=== PATIENT | female | born 1965 | race Caucasian/White ===

== ENCOUNTER 2016-11-19 11:12 | Emergency (ER) | payer OTHER ==
[~2016-11-19] VITALS: Ht 160 cm; Wt 98.0 kg
[~2016-11-19 11:12] MED LIST: ALPR0.5T PO; ATOR10TA PO; BUPR150T15 PO; CHOL100013 PO; CLIN-44 PO; CYAN25008 PO; FAMO40TA4 PO; FISH1CAP PO; GEMF600T3 PO; GUAI100L12 PO; HYDR12.53 PO; LEVO500T38 PO; LORA10CA PO; LOSA1TAB16 PO; LOSA50TA6 PO; METF10002 PO; METF500T PO; METF500T4 PO; METO25TA2 PO; PANT40TA3 PO; PRED20TA PO; PROAIR HFA8.5 GM IH; TRAZ100T12 PO; VENL100T PO; VENL75CA PO; VERA240C2 PO
[2016-11-19] MEDS ORDERED: IOHEXOL 300 MG/ML 100ML VIAL. IV ONE (11:45)
[2016-11-19] MEDS ORDERED: CONTRAST GIVEN MC PRN (12:00)
[2016-11-19] MEDS ORDERED: IPRATRPIUM/ALBUTEROL 0.5/2.5MG 3 ML NEBU. NEB ONE (12:00)
[2016-11-19] MEDS ORDERED: OXYCODONE/APAP 5/325 TABLET. PO ONE (12:00)
--- NOTE | 2016-11-19 12:01 | RAD ---
Portable chest, 11/19/2016: History: Cough, shortness of breath Comparison is made to a study from 11/15/2016. The heart size and pulmonary vascularity are normal. No pulmonary infiltrates are seen. There is no evidence of pleural fluid. IMPRESSION: No acute cardiopulmonary abnormality is detected.
[2016-11-19 12:04] LABS: BASO # 0.1 x10^3/uL (0.0-0.2); BASO % 1 % (0-3); EOS % 2 % (0-3); HEMATOCRIT 40.8 % (36.0-47.0); HEMOGLOBIN 13.7 g/dL (12.0-15.5); LYMPH # 3.3 x10^3/uL (1.0-4.8); LYMPH % 38 % (24-48); MEAN CORPUSCULAR HEMOGLOBIN 30 pg (25-35); MEAN CORPUSCULAR HGB CONC 34 g/dL (31-37); MEAN CORPUSCULAR VOLUME 90 fL (79-100); MONO % 5 % (0-9); NEUT % 55 % (31-73); PLATELET COUNT 231 x10^3/uL (140-400); RED BLOOD COUNT 4.55 x10^6/uL (3.50-5.40); RED CELL DISTRIBUTION WIDTH 13.2 % (11.5-14.5); WHITE BLOOD COUNT 8.7 x10^3/uL (4.0-11.0)
[2016-11-19 12:14] LABS: CALCIUM 9.2 mg/dL (8.5-10.1); CREATININE 0.9 mg/dL (0.6-1.0)
--- NOTE | 2016-11-19 12:56 | RAD ---
CTA of the chest with contrast, 11/19/2016: History: Worsening chest pain Multidetector CT imaging was performed following an IV bolus injection of iodinated contrast material. Multiplanar reconstructions were produced including coronal and sagittal MIP images. Comparison is made to a study from 11/15/2016. The central pulmonary arteries are better opacified on the current exam. No filling defects are seen in the pulmonary arteries to suggest pulmonary emboli. The thoracic aorta is of normal caliber. Several calcified mediastinal lymph nodes are seen. Several noncalcified mediastinal lymph nodes are present without evidence of pathologic enlargement. There is an unchanged elongated calcification in the posterior aspect of the right upper lobe. There is mild linear atelectasis inferiorly in the right middle lobe. Additional areas of hazy atelectasis are present posteriorly and in the lung bases. This is probably related to the fact that a CTA study is typically not performed with a deep inspiration for technical reasons. No consolidating infiltrate is seen. There is no evidence of pleural fluid. The liver is of lower than normal density compatible with fatty change. IMPRESSION: 1. No CT evidence of central pulmonary emboli. 2. Hepatic steatosis PQRS Compliance Statement: One or more of the following individualized dose reduction techniques were utilized for this examination: 1. Automated exposure control 2. Adjustment of the mA and/or kV according to patient size 3. Use of iterative reconstruction technique
[2016-11-19] MEDS ORDERED: PRED20TA PO (13:28)
[2016-11-19] MEDS ORDERED: PROVENTIL HFA6.7 GM IH (13:28)
[2016-11-19] MEDS ORDERED: LEVO500T38 PO (13:28)
[2016-11-19] MEDS ORDERED: HYDR-971 PO (13:28)
--- NOTE | 2016-11-19 13:28 | PHYS DOC ---
Past Medical History Past Medical History: Anxiety, Bronchitis, Diabetes-Type II, High Cholesterol, Hypertension, Other Additional Past Medical Histor: CARDIAC BLOCKAGE LESS THAN 50% Past Surgical History: Cholecystectomy, Hysterectomy Additional Past Surgical Histo: right shoulder, carpel tunnel, CARDIA CATH NO STENTS Alcohol Use: Rarely Drug Use: None Adult General Chief Complaint Chief Complaint: RIB PAIN HPI HPI Patient is a 51 year old [f__sex] who presents with [] Review of Systems Review of Systems Constitutional: Denies fever or chills [] Eyes: Denies change in visual acuity, redness, or eye pain [] HENT: Denies nasal congestion or sore throat [] Respiratory: Denies cough or shortness of breath [] Cardiovascular: No additional information not addressed in HPI [] GI: Denies abdominal pain, nausea, vomiting, bloody stools or diarrhea [] : Denies dysuria or hematuria [] Musculoskeletal: Denies back pain or joint pain [] Integument: Denies rash or skin lesions [] Neurologic: Denies headache, focal weakness or sensory changes [] Endocrine: Denies polyuria or polydipsia [] Current Medications Current Medications Current Medications Medications (Trade) Dose Ordered Sig/Nano Start Time Stop Time Status Last Admin Dose Admin Albuterol/ Ipratropium (Duoneb) 6 ml 1X ONCE 11/19/16 12:00 11/19/16 12:19 DC 11/19/16 11:32 6 ML Info (Do NOT chart on this entry -- for MONITORING) 1 each PRN DAILY PRN 11/19/16 12:00 11/21/16 11:59 Iohexol (Omnipaque 300 Mg/ml) 75 ml 1X ONCE 11/19/16 11:45 11/19/16 11:47 DC 11/19/16 11:45 75 ML Oxycodone/ Acetaminophen (Percocet 5/325) 2 tab 1X ONCE 11/19/16 12:00 11/19/16 12:19 DC 11/19/16 11:34 2 TAB Allergies Allergies Allergies Coded Allergies Type Severity Reaction Last Updated Verified codeine Adverse Reaction Intermediate hallucinations 09/12/16 Yes Physical Exam Physical Exam Constitutional: Well developed, well nourished, no acute distress, non-toxic appearance. [] HENT: Normocephalic, atraumatic, bilateral external ears normal, oropharynx moist, no oral exudates, nose normal. [] Eyes: PERRLA, EOMI, conjunctiva normal, no discharge. [] Neck: Normal range of motion, no tenderness, supple, no stridor. [] Cardiovascular:Heart rate regular rhythm, no murmur [] Lungs & Thorax: Bilateral breath sounds clear to auscultation [] Abdomen: Bowel sounds normal, soft, no tenderness, no masses, no pulsatile masses. [] Skin: Warm, dry, no erythema, no rash. [] Back: No tenderness, no CVA tenderness. [] Extremities: No tenderness, no cyanosis, no clubbing, ROM intact, no edema. [] Neurologic: Alert and oriented X 3, normal motor function, normal sensory function, no focal deficits noted. [] Psychologic: Affect normal, judgement normal, mood normal. [] Current Patient Data Vital Signs Vital Signs Date Time Temp Pulse Resp B/P Pulse Ox O2 Delivery O2 Flow Rate FiO2 11/19/16 11:32 97 Room Air 11/19/16 11:21 98.2 114 27 170/70 98.2 Lab Values Laboratory Tests Test 11/19/16 11:51 White Blood Count 8.7x10^3/uL (4.0-11.0) Red Blood Count 4.55x10^6/uL (3.50-5.40) Hemoglobin 13.7g/dL (12.0-15.5) Hematocrit 40.8% (36.0-47.0) Mean Corpuscular Volume 90fL (79-100) Mean Corpuscular Hemoglobin 30pg (25-35) Mean Corpuscular Hemoglobin Concent 34g/dL (31-37) Red Cell Distribution Width 13.2% (11.5-14.5) Platelet Count 231x10^3/uL (140-400) Neutrophils (%) (Auto) 55% (31-73) Lymphocytes (%) (Auto) 38% (24-48) Monocytes (%) (Auto) 5% (0-9) Eosinophils (%) (Auto) 2% (0-3) Basophils (%) (Auto) 1% (0-3) Neutrophils # (Auto) 4.7x10^3uL (1.8-7.7) Lymphocytes # (Auto) 3.3x10^3/uL (1.0-4.8) Monocytes # (Auto) 0.4x10^3/uL (0.0-1.1) Eosinophils # (Auto) 0.2x10^3/uL (0.0-0.7) Basophils # (Auto) 0.1x10^3/uL (0.0-0.2) Sodium Level 139mmol/L (136-145) Potassium Level 4.0mmol/L (3.5-5.1) Chloride Level 101mmol/L (98-107) Carbon Dioxide Level 25mmol/L (21-32) Anion Gap 13 (6-14) Blood Urea Nitrogen 16mg/dL (7-20) Creatinine 0.9mg/dL (0.6-1.0) Estimated GFR (Cockcroft-Gault) 66.0 Glucose Level 173mg/dL (70-99) H Calcium Level 9.2mg/dL (8.5-10.1) Laboratory Tests 11/19/16 11:51 Laboratory Tests 11/19/16 11:51 EKG EKG [] Radiology/Procedures Radiology/Procedures [] Impressions: PROCEDURE: ANGIOGRAPHY CHEST CTA of the chest with contrast, 11/19/2016: History: Worsening chest pain Multidetector CT imaging was performed following an IV bolus injection of iodinated contrast material. Multiplanar reconstructions were produced including coronal and sagittal MIP images. Comparison is made to a study from 11/15/2016. The central pulmonary arteries are better opacified on the current exam. No filling defects are seen in the pulmonary arteries to suggest pulmonary emboli. The thoracic aorta is of normal caliber. Several calcified mediastinal lymph nodes are seen. Several noncalcified mediastinal lymph nodes are present without evidence of pathologic enlargement. There is an unchanged elongated calcification in the posterior aspect of the right upper lobe. There is mild linear atelectasis inferiorly in the right middle lobe. Additional areas of hazy atelectasis are present posteriorly and in the lung bases. This is probably related to the fact that a CTA study is typically not performed with a deep inspiration for technical reasons. No consolidating infiltrate is seen. There is no evidence of pleural fluid. The liver is of lower than normal density compatible with fatty change. IMPRESSION: 1. No CT evidence of central pulmonary emboli. 2. Hepatic steatosis Course & Med Decision Making Course & Med Decision Making Pertinent Labs and Imaging studies reviewed. (See chart for details) [] Dragon Disclaimer Dragon Disclaimer This electronic medical record was generated, in whole or in part, using a voice recognition dictation system. Departure Departure Impression: Primary Impression: Reactive airway disease with acute exacerbation Disposition: 01 HOME, SELF-CARE Condition: IMPROVED Referrals: MARKEL WILLIAMSON (PCP) Patient Instructions: Acute Bronchitis Additional Instructions: Thank you for allowing us to participate in your care today. Followup with your primary care physician in 3 days if your symptoms do not improve. Return to the emergency department you have any new or concerning findings. This should be evaluated by the primary care physician and any necessary consulting services for continued management within a few days after discharge. Return to emergency room if you have any new or concerning symptoms including but not limited to fever, chills, nausea, vomiting, intractable pain, any new rashes, chest pain, shortness of air, uncontrolled bleeding, difficulty breathing, and/or vision loss. You may have been prescribed medication that can change in your level of thinking and ability to operate machinery. These medications include hydrocodone and Ativan. Also, Benadryl has been known to do this as well. Be sure to check with your pharmacist and ask if the medications you've prescribed can affect your level of consciousness. I recommend not operating heavy machinery or driving while on medication such as these. Scripts Albuterol Sulfate (Proventil Hfa Inhaler)6.7 Gm Hfa.aer.ad1 Puff IH PRN Q4HRS PRN asthma #1 INHALER NS Prov:GAL HARPER DO 11/19/16 Prednisone 20 Mg Tablet2 Tab PO DAILY PRN COUGH #14 TAB Prov:GAL HARPER DO 11/19/16 Hydrocodone/Apap 5-325 ([place] 5-325 Tablet)1 Each Tablet1 Tab PO PRN Q6HRS PRN PAIN #20 TAB Prov:GAL HARPER DO 11/19/16 Levofloxacin (Levaquin)500 Mg Tablet1 Tab PO DAILY bronchitis #10 TAB Prov:GAL HARPER DO 11/19/16 GAL HARPER DO Nov 19, 2016 13:28
[2016-11-19 13:30] VITALS: BP 136/68
== END 2016-11-19 13:49 | disposition home or self-care (01) ==
LOC: ER 11:12
DX: J45.901 Unspecified asthma with (acute) exacerbation (principal); E11.9 Type 2 diabetes mellitus without complications; I10 Essential (primary) hypertension; Z88.5 Allergy status to narcotic agent
CPT/HCPCS: 36415; 71010; 71275; 80048; 85027; 94250; 94640; 99285; J7620; Q9967

== ENCOUNTER 2016-12-16 11:31 | Inpatient (IN) | payer OTHER ==
[~2016-12-16] VITALS: Ht 160 cm; Wt 98.0 kg
[~2016-12-16 11:31] MED LIST changes: +HYDR-971 PO; +PROVENTIL HFA6.7 GM IH
[2016-12-16 12:10] LABS: BILIRUBIN,URINE NEGATIVE (NEG); GLUCOSE,URINE NEGATIVE (NEG); NITRITE,URINE NEGATIVE (NEG); PH,URINE 6.5; PROTEIN,URINE NEGATIVE (NEG-TRACE); UROBILINOGEN,URINE 0.2 mg/dL (0.2 mg/dL)
--- NOTE | 2016-12-16 12:13 | RAD ---
Exam performed: One view chest. Indication: cough 41 beats Date of Service: 12/16/2016 1:54 PM Comparison: 11/19/16. Single AP upright portable view chest findings: Cardiomediastinal silhouette is within limits of normal. No acute infiltrates, effusion or pneumothorax is detected. The bony structures are normal. Impression: No acute cardiopulmonary process is detected.
--- NOTE | 2016-12-16 12:20 | EKG ---
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
[2016-12-16 12:21] LABS: BACTERIA,URINE 0 /HPF (0-FEW); CALCIUM 10.2 mg/dL (8.5-10.1); CREATININE 0.8 mg/dL (0.6-1.0); GFR 75.6; POTASSIUM 4.5 mmol/L (3.5-5.1); SQUAMOUS EPITHELIAL CELL,UR FEW /LPF; WBC,URINE 0 /HPF (0-4)
[2016-12-16 12:27] LABS: ALBUMIN 4.3 g/dL (3.4-5.0); ALBUMIN/GLOBULIN RATIO 1.2 (1.0-1.7); MAGNESIUM 1.8 mg/dL (1.8-2.4); TOTAL BILIRUBIN 0.3 mg/dL (0.2-1.0)
[2016-12-16 12:30] LABS: BASO # 0.1 x10^3/uL (0.0-0.2); BASO % 1 % (0-3); EOS % 1 % (0-3); HEMATOCRIT 42.3 % (36.0-47.0); HEMOGLOBIN 14.4 g/dL (12.0-15.5); LYMPH # 2.5 x10^3/uL (1.0-4.8); LYMPH % 25 % (24-48); MEAN CORPUSCULAR HEMOGLOBIN 30 pg (25-35); MEAN CORPUSCULAR HGB CONC 34 g/dL (31-37); MEAN CORPUSCULAR VOLUME 88 fL (79-100); MONO % 6 % (0-9); NEUT % 67 % (31-73); PLATELET COUNT 300 x10^3/uL (140-400); RED BLOOD COUNT 4.82 x10^6/uL (3.50-5.40); RED CELL DISTRIBUTION WIDTH 13.5 % (11.5-14.5)
[2016-12-16 12:35] LABS: CKMB INDEX 1.4 % (0-4)
[2016-12-16 12:39] LABS: PROTHROMBIN TIME PATIENT 12.6 SEC (11.7-14.0)
--- NOTE | 2016-12-16 13:00 | PHYS DOC ---
Past Medical History Past Medical History: Anxiety, Bronchitis, Diabetes-Type II, High Cholesterol, Hypertension, Other Additional Past Medical Histor: CARDIAC BLOCKAGE LESS THAN 50% Past Surgical History: Cholecystectomy, Hysterectomy Additional Past Surgical Histo: right shoulder, carpel tunnel, CARDIA CATH NO STENTS Alcohol Use: Rarely Drug Use: None Adult General Chief Complaint Chief Complaint: SHORTNESS OF BREATH HPI HPI Patient is a 51 year old female with shortness of air with exertion and chest pressure since the beginning of October. reports she saw her PCP last week and today for the same. Took Aspirin at home today. Also c/o RUQ pain. Denies fever , cough, nausea. Review of Systems Review of Systems Constitutional: Fever this am Eyes: Denies change in visual acuity, redness, or eye pain HENT: Denies nasal congestion or sore throat Respiratory: Shortness of air on exertion for two months Cardiovascular: Chest pressure for two months GI: Denies abdominal pain, nausea, vomiting, bloody stools or diarrhea : Denies dysuria or hematuria Musculoskeletal: Denies back pain or joint pain Integument: Denies rash or skin lesions Neurologic: Denies headache, focal weakness or sensory changes Endocrine: Denies polyuria or polydipsia Current Medications Current Medications Current Medications Medications (Trade) Dose Ordered Sig/Nano Start Time Stop Time Status Last Admin Dose Admin Morphine Sulfate 4 mg 1X ONCE 12/16/16 13:15 12/16/16 13:16 DC 12/16/16 13:29 4 MG Ondansetron HCl (Zofran) 4 mg 1X ONCE 12/16/16 13:15 12/16/16 13:16 DC 12/16/16 13:29 4 MG Allergies Allergies Allergies Coded Allergies Type Severity Reaction Last Updated Verified codeine Adverse Reaction Intermediate hallucinations 09/12/16 Yes Physical Exam Physical Exam Constitutional: Well developed, well nourished, no acute distress, non-toxic appearance. HENT: Normocephalic, atraumatic, bilateral external ears normal, oropharynx moist, no oral exudates, nose normal. Eyes: PERRLA, EOMI, conjunctiva normal, no discharge. Neck: Normal range of motion, no tenderness, supple, no stridor. Cardiovascular:Heart rate regular rhythm, no murmur Lungs & Thorax: Bilateral breath sounds clear to auscultation Abdomen: Bowel sounds normal, soft, no masses, no pulsatile masses. Tenderness RUQ Skin: Warm, dry, no erythema, no rash. Back: No tenderness, no CVA tenderness. Extremities: No tenderness, no cyanosis, no clubbing, ROM intact, no edema. Neurologic: Alert and oriented X 3, normal motor function, normal sensory function, no focal deficits noted. Psychologic: Affect normal, judgement normal, mood normal. Current Patient Data Vital Signs Vital Signs Date Time Temp Pulse Resp B/P Pulse Ox O2 Delivery O2 Flow Rate FiO2 12/16/16 13:29 18 91 Room Air 12/16/16 13:21 99.2 137 126/82 99.2 Lab Values Laboratory Tests Test 12/16/16 12:00 12/16/16 13:20 12/16/16 13:25 White Blood Count 10.0x10^3/uL (4.0-11.0) Red Blood Count 4.82x10^6/uL (3.50-5.40) Hemoglobin 14.4g/dL (12.0-15.5) Hematocrit 42.3% (36.0-47.0) Mean Corpuscular Volume 88fL (79-100) Mean Corpuscular Hemoglobin 30pg (25-35) Mean Corpuscular Hemoglobin Concent 34g/dL (31-37) Red Cell Distribution Width 13.5% (11.5-14.5) Platelet Count 300x10^3/uL (140-400) Neutrophils (%) (Auto) 67% (31-73) Lymphocytes (%) (Auto) 25% (24-48) Monocytes (%) (Auto) 6% (0-9) Eosinophils (%) (Auto) 1% (0-3) Basophils (%) (Auto) 1% (0-3) Neutrophils # (Auto) 6.7x10^3uL (1.8-7.7) Lymphocytes # (Auto) 2.5x10^3/uL (1.0-4.8) Monocytes # (Auto) 0.6x10^3/uL (0.0-1.1) Eosinophils # (Auto) 0.1x10^3/uL (0.0-0.7) Basophils # (Auto) 0.1x10^3/uL (0.0-0.2) Prothrombin Time 12.6SEC (11.7-14.0) Prothrombin Time INR 1.0 (0.8-1.1) D-Dimer (Kylie) < 0.27ug/mlFEU (0.00-0.50) Urine Collection Type Unknown Urine Color Yellow Urine Clarity Clear Urine pH 6.5 Urine Specific [place] 1.010 Urine Protein Negativemg/dL (NEG-TRACE) Urine Glucose (UA) Negativemg/dL (NEG) Urine Ketones (Stick) Negativemg/dL (NEG) Urine Blood Negative (NEG) Urine Nitrite Negative (NEG) Urine Bilirubin Negative (NEG) Urine Urobilinogen Dipstick 0.2mg/dL (0.2 mg/dL) Urine Leukocyte Esterase Negative (NEG) Urine RBC 1-2/HPF (0-2) Urine WBC 0/HPF (0-4) Urine Squamous Epithelial Cells Few/LPF Urine Bacteria 0/HPF (0-FEW) Sodium Level 138mmol/L (136-145) Potassium Level 4.5mmol/L (3.5-5.1) Chloride Level 99mmol/L (98-107) Carbon Dioxide Level 29mmol/L (21-32) Anion Gap 10 (6-14) Blood Urea Nitrogen 18mg/dL (7-20) Creatinine 0.8mg/dL (0.6-1.0) Estimated GFR (Cockcroft-Gault) 75.6 BUN/Creatinine Ratio 23 (6-20) H Glucose Level 147mg/dL (70-99) H Calcium Level 10.2mg/dL (8.5-10.1) H Magnesium Level 1.8mg/dL (1.8-2.4) Total Bilirubin 0.3mg/dL (0.2-1.0) Aspartate Amino Transferase (AST) 23U/L (15-37) Alanine Aminotransferase (ALT) 52U/L (14-59) Alkaline Phosphatase 101U/L (46-116) Creatine Kinase 69U/L (26-192) Creatine Kinase MB (Mass) 1.0ng/mL (0.0-3.6) Creatine Kinase MB Relative Index 1.4% (0-4) Troponin I Quantitative < 0.017ng/mL (0.000-0.055) Total Protein 8.0g/dL (6.4-8.2) Albumin 4.3g/dL (3.4-5.0) Albumin/Globulin Ratio 1.2 (1.0-1.7) Lipase 105U/L (73-393) Influenza Type A Antigen Negative (NEGATIVE) Influenza Type B Antigen Negative (NEGATIVE) POC Troponin I 0.01ng/ml (<0.08) Laboratory Tests 12/16/16 12:00 Laboratory Tests 12/16/16 12:00 EKG EKG [] Radiology/Procedures Radiology/Procedures [] Impressions: 1. Chest pain Course & Med Decision Making Course & Med Decision Making Pertinent Labs and Imaging studies reviewed. (See chart for details) Xray, EKG, Labs reviewed and unremarkable. Admitting based on risk factors, serial enzymes, and cardiology consult Dragon Disclaimer Dragon Disclaimer This electronic medical record was generated, in whole or in part, using a voice recognition dictation system. Departure Departure Impression: Primary Impression: Chest pain Additional Impression: Dyspnea Disposition: ADMITTED INPATIENT Admitting Physician: Maximilian Vegas Condition: STABLE Referrals: AMRKEL WILLIAMSON (PCP) Problem Qualifiers POLA MOSER APRN Dec 16, 2016 12:59
[2016-12-16] MEDS ORDERED: MORPHINE SULFATE 4 MG/ML DISP.SYRIN. IV ONE (13:15)
[2016-12-16] MEDS ORDERED: ONDANSETRON PF 4 MG/2 ML VIAL. IV ONE (13:15)
[2016-12-16 14:06] LABS: OBC FLU VALID
[2016-12-16] MEDS ORDERED: ONDANSETRON PF 4 MG/2 ML VIAL. IV PRN ×2 (14:15→15:30)
--- NOTE | 2016-12-16 15:15 | ACF ---
Admission Forms Criteria CARDIOLOGY GRG Clinical Indications for Admission to Inpatient Care ( Place 'X' for any and all applicable criteria): Hospital admission is needed for appropriate care of the patient because of ANY ONE of the following (1): [ ] I. Hemodynamic instability as indicated by ALL of the following (1)(2)(3) (4)(5) [ ]a) Vital signs or other findings not as expected for chronic patient condition or baseline [ ]b) Instability indicated by ANY ONE of the following: [ ]i) Hypotension [ ]ii) Symptomatic Tachycardia unresponsive to treatment ( e.g., analgesia, fluids, sedation as indicated) [ ]iii) Inadequate perfusion indicated by ANY ONE of the following: [ ] 1) Lactic acidosis (> 2 mmol/L) [ ] 2) New abnormal capillary refill (> 3 seconds) [ ] 3) Reduced urine output [ ] 4) New altered mental status [ ]iv) Orthostatic vital sign changes unresponsive to treatment (e.g., fluids) [ ]v) IV inotropic or vasopressor medication required to maintain adequate blood pressure or perfusion [ ] II. Severe heart failure as indicated by ANY ONE of the following(17)(18) [ ]a) Respiratory distress [ ]b) Hypotension [ ]c) Anasarca (refractory to outpatient therapy) [ ]d) Cardiac arrhythmias of immediate concern [ ]e) Myocardial ischemia [ ] III. Cardiac arrhythmias or findings of immediate concern indicated by ANY ONE of the following (19)(20): [ ] a) Heart rhythms that are inherently dangerous or unstable indicated by ANY ONE of the following (21)(22)(23): [ ] i) Resuscitated ventricular fibrillation or cardiac arrest [ ] ii) Ventricular escape rhythm [ ] iii) Sustained ventricular tachycardia (30 seconds or more of ventricular rhythm at greater than 100 beats per minute) [ ] iv) Nonsustained ventricular tachycardia and ANY ONE of the following: [ ] 1) Suspected cardiac ischemia as cause or consequence of ventricular tachycardia [ ] 2) In setting of acute myocarditis [ ] b) Unstable cardiac conduction defects indicated by ANY ONE of the following(23)(24)(25) [ ] i) Type II second-degree atrioventricular block [ ]ii) Third-degree atrioventricular block [ ]iii) New-onset left bundle branch block with suspected myocardial ischemia [ ]c) Any heart rhythm and ANY ONE of the following (21)(22)(26)(27) (28) [ ] i) Continuous long-term ECG monitoring needed (e.g., initiation of drug requiring monitoring for more than 24 hours) [ ] ii) Patient has automatic implanted cardioverter defibrillator that is repeatedly firing, malfunctioning, or in need of immediate adjustment of settings beyond the scope of ambulatory or observation care [ ]d) Heart rhythms of concern due to ANY ONE of the following: [ ] i) Hypotension [ ] ii) Respiratory distress [ ] iii) Association with other significant symptoms (e.g., bradycardia with syncope or ongoing dizziness, supraventricular tachycardia with chest pain (14)(15)(17) [ ] IV. Monitoring for cardiac contusion beyond the scope of observation care needed [A](30)(31)(32) [ ] V. Surgical or device complication (e.g., valve replacement complication , pacemaker dysfunction) (35)(41)(44)(45)(46) [ ] . Inpatient palliative care needed. [B](49) Also use Inpatient Palliative Care Criteria [ ] VII. Nonbacterial thrombotic (marantic) endocarditis (36)(43)(47)(48) [X] VIII. Cardiology condition, symptom, or finding for which emergency and observation care has failed or are not considered appropriate. [ ] IX. Acute valvular disease requiring inpatient as indicated by ANY ONE of the following (41) [ ]a) Acute valvular regurgitation (42) [ ]b) Noninfectious valvulitis (43) [ ]c) Obstructive valve thrombosis [ ]d) Paravalvular leak [ ]e) Other significant valvular disorder remaining after emergency or observation level of care (as appropriate) [ ]X. Pericardial disease requiring inpatient treatment as indicated by ANY ONE of the following (33)(34)(35)(36)(37) [ ]a) Suspected tamponade (38)(39)(40) [ ]b) Hemopericardium [ ]c) Other significant pericardial disorder remaining after emergency or observation level of care (as appropriate) [ ] XI. Cardiac ischemia beyond scope of emergency and observation care. [ ] XII. Hypertension requiring inpatient treatment as indicated by ANY ONE of the following (6)(7)(8) [ ]a) SBP greater than 220 mm Hg or DBP greater than 120 mmHg despite treatment [ ]b) SBP greater than 140 mm Hg or DBP greater than 100 mm Hg with evidence of acute end organ damage as indicated by ANY ONE of the following [ ] i) Encephalopathy [ ] ii) Acute renal failure as indicated by new onset of ANY ONE of the following (9)(10)(11)(12)(13) [ ]1) 3-fold rise in serum creatinine from baseline [ ]2) Serum creatinine greater than 4 mg/dL ( 354 micromoles/L) with acute rise greater than 0.5 mg/dL (44.2 micromoles/L) [ ]3) Reduction of more than 75% in estimated glomerular filtration rate from baseline [ ]4) Estimated glomerular filtration rate less than 35 mL/min/1.73m2 (0.59 mL/sec/1.73m2) in child up to 18 years of age [ ]5) Cessation of urine output indicated by ALL of the following [ ]A. Adequate volume status [ ]B. Inadequate urine output as indicated by ANY ONE of the following [ ]a. Urine output less than 0.3 mL/kg/hr for 24 hours [ ]b. Anuria (urine output less than 0.1 mL/kg/hr) for 12 hours [ ] iii) Aortic dissection [ ] iv) Myocardial Ischemia [ ] v) Left ventricular heart failure [ ]vi) Retinal Hemorrhage [ ]vii) Other significant finding [ ]c) Hypertension in child requiring inpatient treatment as indicated by ALL of the following(14)(15)(16) [ ] i) Outpatient treatment not effective, not available, or not appropriate [ ]ii) SBP or DBP greater than 95th percentile for age [ ]iii) Evidence of acute end organ damage as indicated by ANY ONE of the following [ ]1) Altered mental status [ ]2) Acute renal failure as indicated by new onset of ANY ONE of the following(9)(10)(11)(12)(13) [ ]A. 3-fold rise in serum creatinine from baseline [ ]B. Serum creatinine greater than 4 mg/dL (354 micromoles/L) with acute rise greater than 0.5 mg/dL (44.2 micromoles/L) [ ]C. Reduction of more than 75% in estimated glomerular filtration rate from baseline [ ]D. Estimated glomerular filtration rate less than 35 mL/min/1.73m2 (0.59 mL/sec/1.73m2) in child up to 18 years of age [ ]E. Cessation of urine output indicated by ALL of the following [ ]a. Adequate volume status [ ]b. Inadequate urine output as indicated by ANY ONE of the following [ ]i) Urine output less than 0.3 mL/kg/hr for 24 hours [ ]ii) Anuria ( urine output less than 0.1 mL/kg/hr) for 12 hours [ ]3) Severe headache [ ]4) Visual disturbance [ ]5) Retinal hemorrhage [ ]6) Other significant finding [ ]XIII. Complications of transplanted heart indicated by ANY ONE of the following(61): [ ]a) Acute graft rejection requiring inpatient management (eg, intravenous immunosuppression)(62)(63) [ ]b) Acute graft heart failure indicated by ANY ONE of the following(64): [ ]i) Hemodynamic instability [ ]ii) Cardiac arrhythmias of immediate concern [ ]iii) Pulmonary edema that is very severe (eg, mechanical ventilation needed, imminent or likely, need for 100% oxygen to keep oxygen saturation above 90%) [ ]iv) Pulmonary edema that is persistent as indicated by ALL of the following: [ ]1) New need for oxygen therapy to keep oxygen saturation above 90% (or increased FiO2 need from baseline) [ ]2) Has not improved sufficiently with emergency department or observation care IV diuretics or other heart failure treatments[E] [ ]v) Altered mental status that is severe or persistent [ ]vi) Increased creatinine (new on laboratory test) with reduction of more than 50% in estimated glomerular filtration rate from baseline [ ]vii) Progressively (ongoing) rising creatinine (known from past laboratory test) with reduction of more than 25% in estimated glomerular filtration rate from baseline [ ]viii) Acute renal failure [ ]ix) Acute peripheral ischemia (eg, examination shows pulseless, cool, mottled, or cyanotic extremity) [ ]x) Pulmonary artery catheter monitoring needed [ ]xi) Other sign or symptom of heart failure requiring inpatient treatment (ie, too severe or not responsive to outpatient and observation care treatment) [ ]c) Infection requiring inpatient management (eg, Hemodynamic instability, need for intravenous antimicrobial treatment)(66)(67)(68)(69)(70) [ ]d) Cardiac allograft vasculopathy requiring inpatient management ( eg evidence of cardiac ischemia)(71) [ ]e) Other complication of transplanted heart (eg, stroke, severe pulmonary hypertension, severe valvular dysfunction) requiring inpatient management(72) The original [facility] content created by [facility] has been revised. The portions of the content which have been revised are identified through the use of italic text or in bold, and [facility] has neither reviewed nor approved the modified material. All other unmodified content is copyright [facility]. Please see references footnoted in the original [facility] edition 2016 Admission Criteria Met?: Yes LEYLA BREWSTER Dec 16, 2016 15:15
--- NOTE | 2016-12-16 15:22 | PDOC1 ---
History and Physical Date of Admission Date of Admission 12/16/16 Identification/Chief Complaint Chief Complaint chest pain Problems: Source Source: Chart review, Patient History of Present Illness History of Present Illness HPI HPI Patient is a 51 year old F with obesity, dm, htn, comes for right side chest pain. She was here 1m ago for bronchitis, and right chest pain, CE neg, dced home with cough meds, advair, levaquin. She cont have right chest pain, with tenderness , pleuritic, with coughing. She saw PCP , took NSAIDS, Opoids, not better, and comes. T 99.5 at home. cough with some sputum. bl leg mild edema hba1c 7.7 as per sister this month. Past Medical History Cardiovascular: HTN Pulmonary: Bronchitis Psych: Anxiety Past Surgical History Past Surgical History: Hysterectomy, Other Family History Family History: Hypertension, Other Social History Smoke: 1 pack per day ALCOHOL: social Drugs: None Current Problem List Problem List Problems Medical Problems: (1) Chest pain Status: Acute (2) Dyspnea Status: Acute Current Medications Current Medications Current Medications Medications (Trade) Dose Ordered Sig/Nano Start Time Stop Time Status Last Admin Dose Admin Morphine Sulfate 4 mg 1X ONCE 12/16/16 13:15 12/16/16 13:16 DC 12/16/16 13:29 4 MG Ondansetron HCl (Zofran) 4 mg PRN Q8HRS PRN 12/16/16 14:15 12/17/16 14:14 Allergies Allergies Allergies Coded Allergies Type Severity Reaction Last Updated Verified codeine Adverse Reaction Intermediate hallucinations 09/12/16 Yes ROS Review of System CONSTITUTIONAL: No fever or chills EYES: No recent changes SKIN: No rash or itching CARDIOVASCULAR: No chest pain, syncope, palpitations, or edema RESPIRATORY: No SOB or cough GASTROINTESTINAL: No nausea, vomiting or abdominal pain NEUROLOGICAL: No headaches or weakness ENDOCRINE: No cold or heat intolerance GENITOURINARY: No urgency or frequency of urination MUSCULOSKELETAL: No back pain or joint pain LYMPHATICS: No enlarged lymph nodes PSYCHIATRIC: No anxiety or depression Physical Exam Physical Exam GEN.: No apparent distress. Alert and oriented. HEENT: Head is normocephalic, atraumatic NECK: Supple. LUNGS: Clear to auscultation. severe right lower chest tenderness HEART: RRR, S1, S2 present. Peripheral pulses intact ABDOMEN: Soft, nontender. Positive bowel sounds. EXTREMITIES: Without any cyanosis. bl leg 1+ edema NEUROLOGIC: Normal speech, normal tone PSYCHIATRIC: Normal affect, normal mood. SKIN: No ulcerations Vitals Vitals Vital Signs Date Time Temp Pulse Resp B/P Pulse Ox O2 Delivery O2 Flow Rate FiO2 12/16/16 15:15 111 125/86 12/16/16 13:29 18 91 Room Air 12/16/16 13:21 99.2 99.2 Labs Labs Laboratory Tests Test 12/16/16 12:00 12/16/16 13:20 12/16/16 13:25 White Blood Count 10.0x10^3/uL (4.0-11.0) Red Blood Count 4.82x10^6/uL (3.50-5.40) Hemoglobin 14.4g/dL (12.0-15.5) Hematocrit 42.3% (36.0-47.0) Mean Corpuscular Volume 88fL (79-100) Mean Corpuscular Hemoglobin 30pg (25-35) Mean Corpuscular Hemoglobin Concent 34g/dL (31-37) Red Cell Distribution Width 13.5% (11.5-14.5) Platelet Count 300x10^3/uL (140-400) Neutrophils (%) (Auto) 67% (31-73) Lymphocytes (%) (Auto) 25% (24-48) Monocytes (%) (Auto) 6% (0-9) Eosinophils (%) (Auto) 1% (0-3) Basophils (%) (Auto) 1% (0-3) Neutrophils # (Auto) 6.7x10^3uL (1.8-7.7) Lymphocytes # (Auto) 2.5x10^3/uL (1.0-4.8) Monocytes # (Auto) 0.6x10^3/uL (0.0-1.1) Eosinophils # (Auto) 0.1x10^3/uL (0.0-0.7) Basophils # (Auto) 0.1x10^3/uL (0.0-0.2) Prothrombin Time 12.6SEC (11.7-14.0) Prothromb Time International Ratio 1.0 (0.8-1.1) D-Dimer (Kylie) < 0.27ug/mlFEU (0.00-0.50) Urine Collection Type Unknown Urine Color Yellow Urine Clarity Clear Urine pH 6.5 Urine Specific [place] 1.010 Urine Protein Negativemg/dL (NEG-TRACE) Urine Glucose (UA) Negativemg/dL (NEG) Urine Ketones (Stick) Negativemg/dL (NEG) Urine Blood Negative (NEG) Urine Nitrite Negative (NEG) Urine Bilirubin Negative (NEG) Urine Urobilinogen Dipstick 0.2mg/dL (0.2 mg/dL) Urine Leukocyte Esterase Negative (NEG) Urine RBC 1-2/HPF (0-2) Urine WBC 0/HPF (0-4) Urine Squamous Epithelial Cells Few/LPF Urine Bacteria 0/HPF (0-FEW) Sodium Level 138mmol/L (136-145) Potassium Level 4.5mmol/L (3.5-5.1) Chloride Level 99mmol/L (98-107) Carbon Dioxide Level 29mmol/L (21-32) Anion Gap 10 (6-14) Blood Urea Nitrogen 18mg/dL (7-20) Creatinine 0.8mg/dL (0.6-1.0) Estimated GFR (Cockcroft-Gault) 75.6 BUN/Creatinine Ratio 23 (6-20) Glucose Level 147mg/dL (70-99) Calcium Level 10.2mg/dL (8.5-10.1) Magnesium Level 1.8mg/dL (1.8-2.4) Total Bilirubin 0.3mg/dL (0.2-1.0) Aspartate Amino Transf (AST/SGOT) 23U/L (15-37) Alanine Aminotransferase (ALT/SGPT) 52U/L (14-59) Alkaline Phosphatase 101U/L (46-116) Creatine Kinase 69U/L (26-192) Creatine Kinase MB (Mass) 1.0ng/mL (0.0-3.6) Creatine Kinase MB Relative Index 1.4% (0-4) Troponin I Quantitative < 0.017ng/mL (0.000-0.055) Total Protein 8.0g/dL (6.4-8.2) Albumin 4.3g/dL (3.4-5.0) Albumin/Globulin Ratio 1.2 (1.0-1.7) Lipase 105U/L (73-393) Influenza Type A Antigen Negative (NEGATIVE) Influenza Type B Antigen Negative (NEGATIVE) Bedside Troponin I 0.01ng/ml (<0.08) Laboratory Tests Test 12/16/16 12:00 12/16/16 13:20 12/16/16 13:25 White Blood Count 10.0x10^3/uL (4.0-11.0) Red Blood Count 4.82x10^6/uL (3.50-5.40) Hemoglobin 14.4g/dL (12.0-15.5) Hematocrit 42.3% (36.0-47.0) Mean Corpuscular Volume 88fL (79-100) Mean Corpuscular Hemoglobin 30pg (25-35) Mean Corpuscular Hemoglobin Concent 34g/dL (31-37) Red Cell Distribution Width 13.5% (11.5-14.5) Platelet Count 300x10^3/uL (140-400) Neutrophils (%) (Auto) 67% (31-73) Lymphocytes (%) (Auto) 25% (24-48) Monocytes (%) (Auto) 6% (0-9) Eosinophils (%) (Auto) 1% (0-3) Basophils (%) (Auto) 1% (0-3) Neutrophils # (Auto) 6.7x10^3uL (1.8-7.7) Lymphocytes # (Auto) 2.5x10^3/uL (1.0-4.8) Monocytes # (Auto) 0.6x10^3/uL (0.0-1.1) Eosinophils # (Auto) 0.1x10^3/uL (0.0-0.7) Basophils # (Auto) 0.1x10^3/uL (0.0-0.2) Prothrombin Time 12.6SEC (11.7-14.0) Prothromb Time International Ratio 1.0 (0.8-1.1) D-Dimer (Kylie) < 0.27ug/mlFEU (0.00-0.50) Urine Collection Type Unknown Urine Color Yellow Urine Clarity Clear Urine pH 6.5 Urine Specific [place] 1.010 Urine Protein Negativemg/dL (NEG-TRACE) Urine Glucose (UA) Negativemg/dL (NEG) Urine Ketones (Stick) Negativemg/dL (NEG) Urine Blood Negative (NEG) Urine Nitrite Negative (NEG) Urine Bilirubin Negative (NEG) Urine Urobilinogen Dipstick 0.2mg/dL (0.2 mg/dL) Urine Leukocyte Esterase Negative (NEG) Urine RBC 1-2/HPF (0-2) Urine WBC 0/HPF (0-4) Urine Squamous Epithelial Cells Few/LPF Urine Bacteria 0/HPF (0-FEW) Sodium Level 138mmol/L (136-145) Potassium Level 4.5mmol/L (3.5-5.1) Chloride Level 99mmol/L (98-107) Carbon Dioxide Level 29mmol/L (21-32) Anion Gap 10 (6-14) Blood Urea Nitrogen 18mg/dL (7-20) Creatinine 0.8mg/dL (0.6-1.0) Estimated GFR (Cockcroft-Gault) 75.6 BUN/Creatinine Ratio 23 (6-20) Glucose Level 147mg/dL (70-99) Calcium Level 10.2mg/dL (8.5-10.1) Magnesium Level 1.8mg/dL (1.8-2.4) Total Bilirubin 0.3mg/dL (0.2-1.0) Aspartate Amino Transf (AST/SGOT) 23U/L (15-37) Alanine Aminotransferase (ALT/SGPT) 52U/L (14-59) Alkaline Phosphatase 101U/L (46-116) Creatine Kinase 69U/L (26-192) Creatine Kinase MB (Mass) 1.0ng/mL (0.0-3.6) Creatine Kinase MB Relative Index 1.4% (0-4) Troponin I Quantitative < 0.017ng/mL (0.000-0.055) Total Protein 8.0g/dL (6.4-8.2) Albumin 4.3g/dL (3.4-5.0) Albumin/Globulin Ratio 1.2 (1.0-1.7) Lipase 105U/L (73-393) Influenza Type A Antigen Negative (NEGATIVE) Influenza Type B Antigen Negative (NEGATIVE) Bedside Troponin I 0.01ng/ml (<0.08) VTE Prophylaxis Ordered VTE Prophylaxis Devices: Yes VTE Pharmacological Prophylaxi: Yes Assessment/Plan Assessment/Plan 1. right chest pain, pleuritic, 2/2 cough and muscular pain likely 2. recent acute bronchitis 3. smoker, held for 1m 4. fatty liver 5. obesity 6. recent CTA showed prevascular lymphonodes, possible reactive 7. HTN 8. CHronic sinus tachycardia 9. dm2 10. anxiety 11. HLD plan: 1. cath half year ago was neg 2. card consult, likely no intervention. cycle CE 3. pain control add NSAIDS 4. cont home meds, increase metformin to 1000mg bid, SSI 5. duoneb cough meds 6. US LE to rule out dvt dvt ppx hope dc MICHELET Mendoza MD Dec 16, 2016 15:22
--- NOTE | 2016-12-16 15:23 | PDOC2 ---
CARDIAC CONSULT DATE OF CONSULT Date of Consult DATE: 12/16/16 TIME: 15:12 REASON FOR CONSULT Reason for Consult: Chest Pain REFERRING PHYSICIAN Referring Physician: Dr. Lugo SOURCE Source: Chart review, Patient HISTORY OF PRESENT ILLNESS HISTORY OF PRESENT ILLNESS This is a 51 yo female, with a history of non-obstructive CAD (40%RCA from cath 04/2016), HTN, and tachycardiac treated with BB therapy, who presented with complaints of shortness of breath, pain under her right breast, and overall not feeling well. Treated for acute bronchitis and productive cough approximately 1 month ago. Has been feeling "crappy" overall since then. Has has bilateral LE edema and pain under her right breast since. Pain described as stabbing pressure. Worse with a deep breath, cough, and walking. Shortness of breath due to inability to take a deep breath secondary to pain. Treated by PCP with NSAID , Percocet, and muscle relaxants, which did improve pain but returns once medications wear off. Patient denies any associated diaphoresis, dizziness, palpitations, syncope, orthopnea, or nausea/vomiting. Febrile this morning. Reports compliance with medications. PAST MEDICAL HISTORY Cardiovascular: HTN, Hyperlipidemia Pulmonary: Bronchitis GI: No pertinent hx Heme/Onc: No pertinent hx Psych: Anxiety, Depression Musculoskeletal: Other (no pertinent positives noted) Rheumatologic: No pertinent hx Infectious disease: No pertinent hx ENT: No pertinent hx Renal/: No pertinent hx Endocrine: Diabetes Dermatology: No pertinent hx PAST SURGICAL HISTORY Past Surgical History: Cholecystectomy, Hysterectomy, Other (right shoulder and carpal tunnel sx) FAMILY HISTORY Family History: Hypertension SOCIAL HISTORY ALCOHOL: occassional Lives: with Family CURRENT MEDICATIONS CURRENT MEDICATIONS Current Medications Medications (Trade) Dose Ordered Sig/Nano Route PRN Reason Start Time Stop Time Status Last Admin Dose Admin Ondansetron HCl (Zofran) 4 mg 1X ONCE IV 12/16/16 13:15 12/16/16 13:16 DC 12/16/16 13:29 Morphine Sulfate 4 mg 1X ONCE IV 12/16/16 13:15 12/16/16 13:16 DC 12/16/16 13:29 ALLERGIES ALLERGIES: Coded Allergies: codeine (Verified Adverse Reaction, Intermediate, hallucinations, 09/12/16 ) ROS Review of System 14 point ROS conducted with pertinent positives noted above in HPI. PHYSICAL EXAM General: Alert, Oriented X3, Cooperative, No acute distress HEENT: Atraumatic, Mucous membr. moist/pink Lungs: Clear to auscultation, Normal air movement, Other (tenderness upon palpation to area under left breast) Heart: Regular rate, Normal S1, Normal S2, No murmurs Extremities: Normal pulses, Other (trace LE edema ) Skin: No rashes, No significant lesion Neuro: Normal gait, Normal speech, Strength at 5/5 X4 ext, Sensation intact Psych/Mental Status: Mental status NL, Mood NL MUSCULOSKELETAL: Full range of motion without pain VITALS VITALS Vital Signs Date Time Temp Pulse Resp B/P Pulse Ox O2 Delivery O2 Flow Rate FiO2 12/16/16 13:29 18 91 Room Air 12/16/16 13:21 99.2 137 126/82 99.2 LABS Lab: Laboratory Tests Test 12/16/16 12:00 12/16/16 13:20 12/16/16 13:25 White Blood Count 10.0x10^3/uL (4.0-11.0) Red Blood Count 4.82x10^6/uL (3.50-5.40) Hemoglobin 14.4g/dL (12.0-15.5) Hematocrit 42.3% (36.0-47.0) Mean Corpuscular Volume 88fL (79-100) Mean Corpuscular Hemoglobin 30pg (25-35) Mean Corpuscular Hemoglobin Concent 34g/dL (31-37) Red Cell Distribution Width 13.5% (11.5-14.5) Platelet Count 300x10^3/uL (140-400) Neutrophils (%) (Auto) 67% (31-73) Lymphocytes (%) (Auto) 25% (24-48) Monocytes (%) (Auto) 6% (0-9) Eosinophils (%) (Auto) 1% (0-3) Basophils (%) (Auto) 1% (0-3) Neutrophils # (Auto) 6.7x10^3uL (1.8-7.7) Lymphocytes # (Auto) 2.5x10^3/uL (1.0-4.8) Monocytes # (Auto) 0.6x10^3/uL (0.0-1.1) Eosinophils # (Auto) 0.1x10^3/uL (0.0-0.7) Basophils # (Auto) 0.1x10^3/uL (0.0-0.2) Prothrombin Time 12.6SEC (11.7-14.0) Prothromb Time International Ratio 1.0 (0.8-1.1) D-Dimer (Kylie) < 0.27ug/mlFEU (0.00-0.50) Urine Collection Type Unknown Urine Color Yellow Urine Clarity Clear Urine pH 6.5 Urine Specific [place] 1.010 Urine Protein Negativemg/dL (NEG-TRACE) Urine Glucose (UA) Negativemg/dL (NEG) Urine Ketones (Stick) Negativemg/dL (NEG) Urine Blood Negative (NEG) Urine Nitrite Negative (NEG) Urine Bilirubin Negative (NEG) Urine Urobilinogen Dipstick 0.2mg/dL (0.2 mg/dL) Urine Leukocyte Esterase Negative (NEG) Urine RBC 1-2/HPF (0-2) Urine WBC 0/HPF (0-4) Urine Squamous Epithelial Cells Few/LPF Urine Bacteria 0/HPF (0-FEW) Sodium Level 138mmol/L (136-145) Potassium Level 4.5mmol/L (3.5-5.1) Chloride Level 99mmol/L (98-107) Carbon Dioxide Level 29mmol/L (21-32) Anion Gap 10 (6-14) Blood Urea Nitrogen 18mg/dL (7-20) Creatinine 0.8mg/dL (0.6-1.0) Estimated GFR (Cockcroft-Gault) 75.6 BUN/Creatinine Ratio 23 (6-20) Glucose Level 147mg/dL (70-99) Calcium Level 10.2mg/dL (8.5-10.1) Magnesium Level 1.8mg/dL (1.8-2.4) Total Bilirubin 0.3mg/dL (0.2-1.0) Aspartate Amino Transf (AST/SGOT) 23U/L (15-37) Alanine Aminotransferase (ALT/SGPT) 52U/L (14-59) Alkaline Phosphatase 101U/L (46-116) Creatine Kinase 69U/L (26-192) Creatine Kinase MB (Mass) 1.0ng/mL (0.0-3.6) Creatine Kinase MB Relative Index 1.4% (0-4) Troponin I Quantitative < 0.017ng/mL (0.000-0.055) Total Protein 8.0g/dL (6.4-8.2) Albumin 4.3g/dL (3.4-5.0) Albumin/Globulin Ratio 1.2 (1.0-1.7) Lipase 105U/L (73-393) Influenza Type A Antigen Negative (NEGATIVE) Influenza Type B Antigen Negative (NEGATIVE) Bedside Troponin I 0.01ng/ml (<0.08) ECHOCARDIOGRAM ECHOCARDIOGRAM Conclusion> The left ventricle is normal size. Normal left ventricular systolic function. The Ejection Fraction is 50-55%. There is no significant aortic valvular stenosis. Doppler and Color Flow revealed no significant aortic regurgitation. Doppler and Color Flow revealed trace mitral valve regurgitation. Doppler and Color Flow revealed trace tricuspid regurgitation. The PA pressure was estimated at 17 mmHg. There is no evidence of significant pericardial effusion. DATE: 10/11/14 1333 STRESS TEST STRESS TEST Conclusion 1. No EKG evidence of stress-induced ischemia. 2. Nuclear imaging shows show a slight inferior wall reversible defect mildly suggestive of reversible ischemia. 3. Normal left ventricle systolic function with ejection fraction of 70%. 4. Moderate to low risk Lexiscan nuclear test suggestive of inferior wall reversible ischemia. DATE: 10/20/14 1647 HEART CATH HEART CATH Conclusion 1. No significant coronary artery disease. 2. Normal left ventricle systolic function with ejection fraction estimated at 60%. 3. No significant mitral regurgitation or aortic stenosis. DATE: 10/23/14 1457 ASSESSMENT/PLAN ASSESSMENT/PLAN 1. Chest Pain, noncardiac trop negative. EKG without significant acute changes suspect costochondritis 2. CAD 40% RCA lesion per cath at [facility] in early 2015 continue with secondary prevention 3. LE edema LE us pending Echo 09/29 ~ LVEF 50-55% Will repeat to assess LV function 4. Hypertension well-controlled 5. Sinus tachycardia will increase BB as BP allows. check TSH 6. Hyperlipidemia statin therapy Problems: SELENE SINHA APRN Dec 16, 2016 15:22
[2016-12-16] MEDS ORDERED: HYDROCODONE/APAP 5/325MG TABLET. PO PRN (15:30)
[2016-12-16] MEDS ORDERED: ACETAMINOPHEN 325 MG TABLET. PO PRN (15:30)
[2016-12-16] MEDS ORDERED: GUAIFENESIN 200 MG/10 ML LIQUID. PO PRN (15:30)
[2016-12-16] MEDS ORDERED: DEXTROSE 50% 25 GM / 50ML DISP.SYRIN. IV PRN (15:30)
[2016-12-16] MEDS ORDERED: ALBUTEROL SULFATE 2.5 MG/3 ML NEBU. NEB PRN (15:45)
[2016-12-16] MEDS: CHOLECALCIFEROL (VITAMIN D3) 1,000 UNIT TABLET PO SCH (16:00)
[2016-12-16] MEDS: VERAPAMIL SR 180 MG TABLET.ER. PO SCH (16:00)
[2016-12-16] MEDS: HYDROCHLOROTHIAZIDE 12.5 MG CAPSULE. PO SCH (16:00)
[2016-12-16] MEDS: LOSARTAN POTASSIUM 50 MG TABLET. PO SCH (16:00)
[2016-12-16] MEDS: CYANOCOBALAMIN (VITAMIN B-12) 1,000 MCG TABLET. PO SCH (16:00)
[2016-12-16] MEDS: OMEGA-3 FATTY ACIDS/FISH OIL 1,000 MG CAPSULE. PO SCH (16:00)
[2016-12-16] MEDS ORDERED: ENOXAPARIN 40 MG/0.4 ML DISP.SYRIN. SQ SCH (16:00)
--- NOTE | 2016-12-16 16:25 | RAD ---
Bilateral lower extremity venous ultrasound, 12/16/2016: History: Bilateral leg swelling Duplex evaluation of the deep veins in the lower extremities was performed including grayscale, color-flow and spectral Doppler analysis. The femoral and popliteal veins demonstrate normal compressibility and normal responses to distal augmentation maneuvers. Color imaging of those vessels shows no evidence of intraluminal clot. The visualized deep veins in both calves are patent. IMPRESSION: There is no sonographic evidence of deep vein thrombosis in either lower extremity.
[2016-12-16] MEDS: IPRATRPIUM/ALBUTEROL 0.5/2.5MG 3 ML NEBU. NEB SCH ×2 (16:28→19:52)
[2016-12-16] MEDS ORDERED: FUROSEMIDE 40 MG TABLET PO ONE (16:30)
[2016-12-16 17:00] VITALS: BP 116/71
[2016-12-16] MEDS: METFORMIN 500 MG TABLET. PO SCH (17:20)
[2016-12-16] MEDS: INSULIN ASPART 300 UNITS/3 ML INSULN.PEN SQ SCH (17:26)
[2016-12-16 19:31] VITALS: BP 118/69
[2016-12-16] MEDS: BENZONATATE 100 MG CAPSULE. PO SCH (20:26)
[2016-12-16] MEDS: NAPROXEN 500 MG TABLET PO SCH (20:27)
[2016-12-16] MEDS: METOPROLOL TART IMMED RELEASE 25 MG TABLET PO SCH (20:27)
[2016-12-16] MEDS: VENLAFAXINE 50 MG TABLET. PO SCH (20:28)
[2016-12-16] MEDS: LIDOCAINE (700MG/PATCH) PATCH. TD SCH (20:28)
[2016-12-16] MEDS ORDERED: ATORVASTATIN CALCIUM 10 MG TABLET. PO SCH (21:00)
[2016-12-16] MEDS ORDERED: FAMOTIDINE 20 MG TABLET. PO SCH (21:00)
[2016-12-16] MEDS ORDERED: METOPROLOL TART IMMED RELEASE 25 MG TABLET PO SCH (21:00)
[2016-12-16] MEDS ORDERED: ALPRAZOLAM 0.5 MG TABLET PO SCH (21:00)
[2016-12-16 23:00] VITALS: BP 108/68
[2016-12-17 03:00] VITALS: BP 107/56
[2016-12-17 04:48] LABS: BASO # 0.1 x10^3/uL (0.0-0.2); BASO % 1 % (0-3); EOS % 2 % (0-3); HEMATOCRIT 38.2 % (36.0-47.0); LYMPH # 3.8 x10^3/uL (1.0-4.8); LYMPH % 36 % (24-48); MEAN CORPUSCULAR HEMOGLOBIN 30 pg (25-35); MEAN CORPUSCULAR HGB CONC 34 g/dL (31-37); MEAN CORPUSCULAR VOLUME 89 fL (79-100); MONO % 7 % (0-9); NEUT % 55 % (31-73); PLATELET COUNT 241 x10^3/uL (140-400); RED CELL DISTRIBUTION WIDTH 13.3 % (11.5-14.5); WHITE BLOOD COUNT 10.6 x10^3/uL (4.0-11.0)
[2016-12-17 05:25] LABS: CALCIUM 9.4 mg/dL (8.5-10.1); GFR 58.5; POTASSIUM 3.4 mmol/L (3.5-5.1)
[2016-12-17 05:50] LABS: CHOLESTEROL 156 mg/dL (0-200); HDLC 26 mg/dL (40-60); TRIGLYCERIDES 831 mg/dL (0-150)
[2016-12-17 07:00] VITALS: BP 132/98
[2016-12-17] MEDS: INSULIN ASPART 300 UNITS/3 ML INSULN.PEN SQ SCH ×2 (08:00→12:00)
[2016-12-17] MEDS: IPRATRPIUM/ALBUTEROL 0.5/2.5MG 3 ML NEBU. NEB SCH ×2 (08:33→11:53)
[2016-12-17] MEDS: OMEGA-3 FATTY ACIDS/FISH OIL 1,000 MG CAPSULE. PO SCH (08:34)
[2016-12-17] MEDS: VENLAFAXINE 50 MG TABLET. PO SCH (08:34)
[2016-12-17] MEDS: METOPROLOL TART IMMED RELEASE 25 MG TABLET PO SCH (08:34)
[2016-12-17] MEDS: METFORMIN 500 MG TABLET. PO SCH (08:35)
[2016-12-17] MEDS: LOSARTAN POTASSIUM 50 MG TABLET. PO SCH (08:35)
[2016-12-17] MEDS: CYANOCOBALAMIN (VITAMIN B-12) 1,000 MCG TABLET. PO SCH (08:35)
[2016-12-17] MEDS: HYDROCHLOROTHIAZIDE 12.5 MG CAPSULE. PO SCH (08:35)
[2016-12-17] MEDS: BENZONATATE 100 MG CAPSULE. PO SCH (08:35)
[2016-12-17] MEDS: VERAPAMIL SR 180 MG TABLET.ER. PO SCH (08:35)
[2016-12-17] MEDS: CHOLECALCIFEROL (VITAMIN D3) 1,000 UNIT TABLET PO SCH (08:35)
[2016-12-17] MEDS: LIDOCAINE (700MG/PATCH) PATCH. TD SCH (08:36)
[2016-12-17] MEDS: NAPROXEN 500 MG TABLET PO SCH (08:39)
[2016-12-17] MEDS ORDERED: POTASSIUM CHLORIDE 20 MEQ TABLET.ER. PO ONE (10:00)
[2016-12-17 10:54] VITALS: BP 140/86
[2016-12-17] MEDS ORDERED: ATOR10TA60 PO (11:01)
[2016-12-17] MEDS ORDERED: METO25TA4 PO (11:01)
[2016-12-17] MEDS ORDERED: BENZ100C2 PO (11:01)
[2016-12-17] MEDS ORDERED: LIDO700A4 TD (11:01)
[2016-12-17] MEDS ORDERED: NAPR500T PO (11:01)
[2016-12-17] MEDS ORDERED: PANT40TA5 PO (11:20)
--- NOTE | 2016-12-17 11:22 | PDOC ---
CARDIO Progress Notes Date and Time Date of Service 12/17/2016 Time of Evaluation 1100 Vitals Vitals Vital Signs Date Time Temp Pulse Resp B/P Pulse Ox O2 Delivery O2 Flow Rate FiO2 12/17/16 10:54 97.9 101 19 140/86 93 Room Air 97.9 Weight Weight [ ] Input and Output Intake and Output Intake and Output 12/17/16 07:00 Intake Total 1270 ml Balance 1270 ml Intake Oral 1270 ml # Voids 3 Laboratory Labs Laboratory Tests Test 12/16/16 12:00 12/16/16 13:20 12/16/16 13:25 12/16/16 16:34 White Blood Count 10.0x10^3/uL (4.0-11.0) Red Blood Count 4.82x10^6/uL (3.50-5.40) Hemoglobin 14.4g/dL (12.0-15.5) Hematocrit 42.3% (36.0-47.0) Mean Corpuscular Volume 88fL (79-100) Mean Corpuscular Hemoglobin 30pg (25-35) Mean Corpuscular Hemoglobin Concent 34g/dL (31-37) Red Cell Distribution Width 13.5% (11.5-14.5) Platelet Count 300x10^3/uL (140-400) Neutrophils (%) (Auto) 67% (31-73) Lymphocytes (%) (Auto) 25% (24-48) Monocytes (%) (Auto) 6% (0-9) Eosinophils (%) (Auto) 1% (0-3) Basophils (%) (Auto) 1% (0-3) Neutrophils # (Auto) 6.7x10^3uL (1.8-7.7) Lymphocytes # (Auto) 2.5x10^3/uL (1.0-4.8) Monocytes # (Auto) 0.6x10^3/uL (0.0-1.1) Eosinophils # (Auto) 0.1x10^3/uL (0.0-0.7) Basophils # (Auto) 0.1x10^3/uL (0.0-0.2) Prothrombin Time 12.6SEC (11.7-14.0) Prothromb Time International Ratio 1.0 (0.8-1.1) D-Dimer (Kylie) < 0.27ug/mlFEU (0.00-0.50) Urine Collection Type Unknown Urine Color Yellow Urine Clarity Clear Urine pH 6.5 Urine Specific [place] 1.010 Urine Protein Negativemg/dL (NEG-TRACE) Urine Glucose (UA) Negativemg/dL (NEG) Urine Ketones (Stick) Negativemg/dL (NEG) Urine Blood Negative (NEG) Urine Nitrite Negative (NEG) Urine Bilirubin Negative (NEG) Urine Urobilinogen Dipstick 0.2mg/dL (0.2 mg/dL) Urine Leukocyte Esterase Negative (NEG) Urine RBC 1-2/HPF (0-2) Urine WBC 0/HPF (0-4) Urine Squamous Epithelial Cells Few/LPF Urine Bacteria 0/HPF (0-FEW) Sodium Level 138mmol/L (136-145) Potassium Level 4.5mmol/L (3.5-5.1) Chloride Level 99mmol/L (98-107) Carbon Dioxide Level 29mmol/L (21-32) Anion Gap 10 (6-14) Blood Urea Nitrogen 18mg/dL (7-20) Creatinine 0.8mg/dL (0.6-1.0) Estimated GFR (Cockcroft-Gault) 75.6 BUN/Creatinine Ratio 23 (6-20) Glucose Level 147mg/dL (70-99) Calcium Level 10.2mg/dL (8.5-10.1) Magnesium Level 1.8mg/dL (1.8-2.4) Total Bilirubin 0.3mg/dL (0.2-1.0) Aspartate Amino Transf (AST/SGOT) 23U/L (15-37) Alanine Aminotransferase (ALT/SGPT) 52U/L (14-59) Alkaline Phosphatase 101U/L (46-116) Creatine Kinase 69U/L (26-192) Creatine Kinase MB (Mass) 1.0ng/mL (0.0-3.6) Creatine Kinase MB Relative Index 1.4% (0-4) Troponin I Quantitative < 0.017ng/mL (0.000-0.055) Total Protein 8.0g/dL (6.4-8.2) Albumin 4.3g/dL (3.4-5.0) Albumin/Globulin Ratio 1.2 (1.0-1.7) Lipase 105U/L (73-393) Influenza Type A Antigen Negative (NEGATIVE) Influenza Type B Antigen Negative (NEGATIVE) Bedside Troponin I 0.01ng/ml (<0.08) Glucose (Fingerstick) 200mg/dL (70-99) Test 12/16/16 20:30 12/16/16 22:21 12/17/16 04:15 12/17/16 07:50 Troponin I Quantitative < 0.017ng/mL (0.000-0.055) < 0.017ng/mL (0.000-0.055) Glucose (Fingerstick) 145mg/dL (70-99) 146mg/dL (70-99) White Blood Count 10.6x10^3/uL (4.0-11.0) Red Blood Count 4.30x10^6/uL (3.50-5.40) Hemoglobin 13.0g/dL (12.0-15.5) Hematocrit 38.2% (36.0-47.0) Mean Corpuscular Volume 89fL (79-100) Mean Corpuscular Hemoglobin 30pg (25-35) Mean Corpuscular Hemoglobin Concent 34g/dL (31-37) Red Cell Distribution Width 13.3% (11.5-14.5) Platelet Count 241x10^3/uL (140-400) Neutrophils (%) (Auto) 55% (31-73) Lymphocytes (%) (Auto) 36% (24-48) Monocytes (%) (Auto) 7% (0-9) Eosinophils (%) (Auto) 2% (0-3) Basophils (%) (Auto) 1% (0-3) Neutrophils # (Auto) 5.8x10^3uL (1.8-7.7) Lymphocytes # (Auto) 3.8x10^3/uL (1.0-4.8) Monocytes # (Auto) 0.7x10^3/uL (0.0-1.1) Eosinophils # (Auto) 0.2x10^3/uL (0.0-0.7) Basophils # (Auto) 0.1x10^3/uL (0.0-0.2) Sodium Level 138mmol/L (136-145) Potassium Level 3.4mmol/L (3.5-5.1) Chloride Level 96mmol/L (98-107) Carbon Dioxide Level 29mmol/L (21-32) Anion Gap 13 (6-14) Blood Urea Nitrogen 22mg/dL (7-20) Creatinine 1.0mg/dL (0.6-1.0) Estimated GFR (Cockcroft-Gault) 58.5 Glucose Level 202mg/dL (70-99) Calcium Level 9.4mg/dL (8.5-10.1) Triglycerides Level 831mg/dL (0-150) Cholesterol Level 156mg/dL (0-200) LDL Cholesterol, Calculated mg/dL (0-100) VLDL Cholesterol, Calculated 166mg/dL (0-40) HDL Cholesterol 26mg/dL (40-60) Cholesterol/HDL Ratio 6.0 Thyroid Stimulating Hormone (TSH) 0.919uIU/mL (0.358-3.74) Test 12/17/16 10:06 Glucose (Fingerstick) 210mg/dL (70-99) Physical Exam HEENT: Neck Supple W Full Motion Chest: Symmetric LUNGS: Clear to Auscultation Heart: S1S2, RRR Abdomen: Soft N/T Extremities: No Calf Tenderness, Other (trace LE edema) Neurology: alert, oriented, follow commands Assessment Assessment 1. Chest Pain, noncardiac trop negative. PE ruled out with normal DDIMER. EKG without significant acute changes Epigastric tenderness with right lower rib cage pain. Reproducible. Remains to have pain. Notable for NSAID use intermittently and intensified to daily since pain started. Likely MSK but would suspect GI involvement. Defer to PCP. 2. CAD 40% RCA lesion per cath at [facility] in early 2015. F/U echo is pending otherwise no further workup is warranted. continue with secondary prevention. Follow up in office as scheduled. 3. LE edema US to legs neg for DVT. Echo 09/29 ~ LVEF 50-55% Will repeat to assess LV function 4. Hypertension well-controlled 5. Sinus tachycardia Reactive to pain. HR 90s. Continue with current BB. TSH normal. Pain management 6. Hyperlipidemia TG 831. lipase normal. Continue on low dose lipitor and also on fish oil Will start on fibrates Discussed diet and exercise. 7. DM2 Optimize BG control, per PCP SHANNAN HESTER APRN Dec 17, 2016 11:22
[2016-12-17] MEDS ORDERED: FENOFIBRATE 54 MG TABLET PO SCH (12:00)
--- NOTE | 2016-12-17 12:14 | CARD ---
APPROVED REPORT EXAM: Two-dimensional and M-mode echocardiogram with Doppler and color Doppler. Other Information Quality : Average Rhythm : Tachycardia INDICATION Peripheral Edema 2D DIMENSIONS RVDd2.2 (2.9-3.5cm)Left Atrium(2D)3.1 (1.6-4.0cm) IVSd1.1 (0.7-1.1cm)Aortic Root(2D)3.1 (2.0-3.7cm) LVDd4.6 (3.9-5.9cm)LVOT Diameter2.0 (1.8-2.4cm) PWd1.1 (0.7-1.1cm)LVDs3.0 (2.5-4.0cm) FS (%) 34.2 %SV61.0 ml LVEF(%)63.2 (>50%) Aortic Valve AoV Peak Cordell.152.2cm/sAoV VTI26.7cm AO Peak GR.9.3mmHgLVOT Peak Cordell.91.9cm/s LVOT VTI 16.53cmAO Mean GR.5mmHg DIEGO (VMAX)1.03pv5KMS (VTI)1.88cm2 Mitral Valve MV E Wjaonyhh58.4cm/sMV DECEL [id number] MV E Mean Gr.4mmHgMV HRJ67az MV A Jzjtodgf00rzXUF (PHT)6.39cm2 TDI E/Lateral E'15.5E/Medial E'13.6 Pulmonary Valve PV Peak Ecxqbnsn499.4cm/sPV Peak Grad.6mmHg RVOT VTI13.1cm LEFT VENTRICLE The left ventricle is normal size. There is normal left ventricular wall thickness. Left ventricle sy stolic function is normal. The Ejection Fraction is 60-65%. The left ventricular systolic function is normal and the ejection fraction is within normal range. The Ejection Fraction is 60-65%. There is n ormal LV segmental wall motion. Tissue Doppler imaging reveals mild left ventricular diastolic dysfun ction. Transmitral Doppler flow pattern is Grade I-abnormal relaxation pattern. RIGHT VENTRICLE The right ventricle is normal size. The right ventricular systolic function is normal. ATRIA The left atrium size is normal. The right atrium size is normal. The interatrial septum is intact wit h no evidence for an atrial septal defect or patent foramen ovale as noted on 2-D or Doppler imaging. AORTIC VALVE The aortic valve is normal in structure and function. The aortic valve is trileaflet. Doppler and Col or Flow revealed no significant aortic regurgitation. There is no significant aortic valvular stenosi s. MITRAL VALVE The mitral valve leaflets are thickened. There is no mitral valve stenosis. Doppler and Color Flow re vealed no mitral valve regurgitation noted. TRICUSPID VALVE The tricuspid valve is normal in structure and function. Doppler and Color Flow revealed trace tricus pid valve regurgitation. There is no tricuspid valve stenosis. PULMONIC VALVE The pulmonic valve is not well visualized. Doppler and Color Flow revealed no pulmonic valvular regur gitation. There is no pulmonic valvular stenosis. GREAT VESSELS The aortic root is normal in size. The IVC is normal in size and collapses >50% with inspiration. PERICARDIAL EFFUSION There is no evidence of significant pericardial effusion. Critical Notification Critical Value: No <Conclusion> The left ventricle is normal size. Left ventricle systolic function is normal. The Ejection Fraction is 60-65%. There is no significant aortic valvular stenosis. Doppler and Color Flow revealed no significant aortic regurgitation. Doppler and Color Flow revealed no mitral valve regurgitation noted. Doppler and Color Flow revealed trace tricuspid valve regurgitation. There is no evidence of significant pericardial effusion.
--- NOTE | 2016-12-17 12:17 | PDOC3 ---
Discharge Summary [facility] Date of Admission: Dec 16, 2016 Discharge Date: Dec 17, 2016 Admitting Diagnosis 1. right chest pain, pleuritic, 2/2 cough and muscular pain likely 2. recent acute bronchitis 3. smoker, held for 1m 4. fatty liver 5. obesity 6. recent CTA showed prevascular lymphonodes, possible reactive 7. HTN 8. CHronic sinus tachycardia 9. dm2 10. anxiety 11. HLD Problems: Final Diagnosis Problems Medical Problems: (1) Chest pain Status: Acute (2) Dyspnea Status: Acute CONSULTS card Brief Hospital Course Patient is a 51 year old F with obesity, dm, htn, comes for right side chest pain. She was here 1m ago for bronchitis, and right chest pain, CE neg, dced home with cough meds, advair, levaquin. She cont have right chest pain, with tenderness , pleuritic, with coughing. She saw PCP , took NSAIDS, Opoids, not better, and comes. T 99.5 at home. cough with some sputum. bl leg mild edema hba1c 7.7 as per sister this month. pt feels slightly better today, ECho pending. dc home if no cardiac intervention increased metformin to 1000mg bid, lipitor 20mg daily, gave lidoderm patch, add protonix and tessalon for cough. dc time 35min GEN.: No apparent distress. Alert and oriented. HEENT: Head is normocephalic, atraumatic NECK: Supple. LUNGS: Clear to auscultation. severe right lower chest tenderness HEART: RRR, S1, S2 present. Peripheral pulses intact ABDOMEN: Soft, nontender. Positive bowel sounds. EXTREMITIES: Without any cyanosis. bl leg 1+ edema NEUROLOGIC: Normal speech, normal tone PSYCHIATRIC: Normal affect, normal mood. SKIN: No ulcerations Patient History: Cancer confirmed (situation) G8 BROTHER Family history: Diabetes mellitus (situation) 32 MOTHER Family history: Hypertension (situation) 33 FATHER 32 MOTHER G8 SISTER Family history: Hypertension (situation) 33 FATHER 32 MOTHER G8 SISTER Problems: Disposition home CONDITION AT DISCHARGE: Improved Diet ada Scheduled Alprazolam (Xanax) 1 TAB PO HS (Reported) Atorvastatin Calcium (Lipitor) Unknown Dose PO HS (Reported) Atorvastatin Calcium (Atorvastatin Calcium) 20 MG PO HS Benzonatate (Benzonatate) 100 MG PO [id number] Cholecalciferol (Vitamin D3) (Vitamin D) 1 CAP PO DAILY (Reported) Cyanocobalamin (Vitamin B-12) (Vitamin B12) 2,500 MCG PO DAILY (Reported) Fish Oil/Dha/Epa (Fish Oil 1,200 Mg Fish Oil) 4 EACH PO DAILY (Reported) Hydrochlorothiazide (Hydrochlorothiazide Capsule ) 12.5 MG PO DAILY Lidocaine (Lidoderm) 1 PATCH TD DAILY Losartan Potassium (Losartan Potassium) 50 MG PO DAILY (Reported) Metoprolol Tartrate (Metoprolol Tartrate) 50 MG PO BID Naproxen (Naprosyn) 500 MG PO BID Pantoprazole Sodium (Pantoprazole Sodium) 40 MG PO DAILYAC Venlafaxine Hcl (Venlafaxine Hcl) 100 MG PO BID (Reported) Verapamil Hcl (Verapamil Er) 180 MG PO DAILY (Reported) Scheduled PRN Albuterol Sulfate (Proventil Hfa Inhaler) 1 PUFF IH PRN Q4HRS PRN PRN asthma Guaifenesin (Guaifenesin) 200 MG PO PRN Q4HRS PRN PRN COUGH Hydrocodone/Apap 5-325 ([place] 5-325 Tablet) 1 TAB PO PRN Q6HRS PRN PRN PAIN Discontinued Medications Levofloxacin (Levaquin) 500 MG PO DAILY06 Levofloxacin (Levaquin) 1 TAB PO DAILY Metformin Hcl (Metformin Hcl) 1 TAB PO BID (Reported) Metoprolol Succinate (Toprol Xl) 1 TAB PO BID (Reported) Prednisone (Prednisone) 2 TAB PO DAILY PRN PRN COUGH Follow Up pcp in 2weeks MICHELET ROBLEDO MD Dec 17, 2016 12:17
[2016-12-17] MEDS ORDERED: ATORVASTATIN CALCIUM 20 MG TABLET PO SCH (21:00)
[2016-12-18] MEDS ORDERED: PANTOPRAZOLE 40 MG TABLET. PO SCH (07:30)
[2016-12-18] MEDS ORDERED: FENOFIBRATE 54 MG TABLET PO SCH (09:00)
== END 2016-12-17 12:54 | disposition home or self-care (01) | DRG 204 ==
LOC: ER 11:31 → 5 NORTH 14:11
PROVIDERS: ADMIT Internal Medicine; ATTEND Internal Medicine
DX: R07.81 Pleurodynia (principal); E11.9 Type 2 diabetes mellitus without complications; E66.9 Obesity, unspecified; E78.00 Pure hypercholesterolemia, unspecified; E78.5 Hyperlipidemia, unspecified; F17.200 Nicotine dependence, unspecified, uncomplicated; F41.9 Anxiety disorder, unspecified; I10 Essential (primary) hypertension; I25.10 Atherosclerotic heart disease of native coronary artery without angina pectoris; K76.0 Fatty (change of) liver, not elsewhere classified; F32.9 Major depressive disorder, single episode, unspecified; R00.0 Tachycardia, unspecified; Z88.5 Allergy status to narcotic agent; Z82.49 Family history of ischemic heart disease and other diseases of the circulatory system; Z83.3 Family history of diabetes mellitus; Z90.710 Acquired absence of both cervix and uterus; Z68.38 Body mass index [BMI] 38.0-38.9, adult; Z98.890 Other specified postprocedural states; Z90.49 Acquired absence of other specified parts of digestive tract
CPT/HCPCS: 36415; 71010; 80048; 80053; 80061; 81001; 82550; 82553; 82947; 83690; 83735; 84443; 84484; 85027; 85379; 85610; 87804; 93005; 93306; 93970; 94250; 94640; 94760; 96372; 96374; 96375; J1650; J1815; J2270; J2405; J7620; 99285-25

== ENCOUNTER 2017-01-27 11:16 | Emergency (ER) | payer OTHER ==
[~2017-01-27] VITALS: Ht 160 cm; Wt 94.3 kg
[~2017-01-27 11:16] MED LIST changes: +ATOR10TA60 PO; +BENZ100C2 PO; +LIDO700A4 TD; +METO25TA4 PO; +NAPR500T PO; +PANT40TA5 PO
--- NOTE | 2017-01-27 11:59 | EKG ---
[facility] [address] [place] [address] Test Date: 2017-01-27 Test Time: 11:30:15 Pat Name: JONATHAN ANN Department: Room: Gender: F [employer]: : 1965 Requested By: STAFF NON Order Number: [id number] Reading MD: Eulalia Deal Measurements Intervals [place] Rate: 95 P: 49 MT: 158 QRS: 1 QRSD: 78 T: 31 QT: 354 QTc: 448 Interpretive Statements SINUS RHYTHM. MISSING LEAD V4. OTHERWISE NORMAL EKG Electronically Signed On 01-28-2017 21:17:30 CDT by Eulalia Deal
--- NOTE | 2017-01-27 13:08 | ED.ADGEN ---
Past Medical History Past Medical History: Anxiety, Bronchitis, Diabetes-Type II, High Cholesterol, Hypertension, Other Additional Past Medical Histor: CARDIAC BLOCKAGE LESS THAN 50%, COSTOCHONDRITIS. Past Surgical History: Cholecystectomy, Hysterectomy Additional Past Surgical Histo: right shoulder, carpel tunnel, CARDIA CATH NO STENTS Alcohol Use: Rarely Drug Use: None Adult General Chief Complaint Chief Complaint: CHEST PAIN HPI HPI Patient is a 51 year old woman, with a history of hypertension, who presents to the emergency department with a complaint of chest pain. Patient states that she strains costochondritis previously after a cardiac evaluation a few months ago, states that she currently is experiencing pain on the left side of her chest after first Revloc pain in the right side of her chest, states that it is different than her previous costochondritis pain, although she denies any shortness of breath, any nausea or vomiting, states it is a constant spasm-like sensation as though she is having "a charley horse" in my chest. Denies any weakness, nose or tingling, any nausea or vomiting, any fevers or chills, states it isn't present for the past 2 days, and started having a cough is nonproductive today. No injuries. She took ibuprofen at 9:00 this morning without relief. Review of Systems Review of Systems Constitutional: Denies fever or chills. [] Eyes: Denies change in visual acuity. [] HENT: Denies nasal congestion or sore throat. [] Respiratory: Nonproductive cough today, no shortness of breath. Cardiovascular: Chest pain located initially in the left side, now on the right side of the chest, no edema. GI: Denies abdominal pain, nausea, vomiting, bloody stools or diarrhea. [] : Denies dysuria. [] Musculoskeletal: Denies back pain or joint pain. [] Integument: Denies rash. [] Neurologic: Denies headache, focal weakness or sensory changes. [] Endocrine: Denies polyuria or polydipsia. [] Lymphatic: Denies swollen glands. [] Psychiatric: Denies depression or anxiety. [] Current Medications Current Medications Current Medications Medications (Trade) Dose Ordered Sig/Nano Start Time Stop Time Status Last Admin Dose Admin Diazepam (Valium) 5 mg 1X ONCE 01/27/17 13:15 01/27/17 13:16 DC 01/27/17 13:26 5 MG Naproxen (Naprosyn) 250 mg 1X ONCE 01/27/17 13:15 01/27/17 13:16 DC 01/27/17 13:26 250 MG Allergies Allergies Allergies Coded Allergies Type Severity Reaction Last Updated Verified codeine Adverse Reaction Intermediate hallucinations 09/12/16 Yes Physical Exam Physical Exam Constitutional: Well developed, well nourished, no acute distress, non-toxic appearance. [] HENT: Normocephalic, atraumatic, bilateral external ears normal, oropharynx moist, no oral exudates, nose normal. [] Eyes: PERRLA, EOMI, conjunctiva normal, no discharge. [] Neck: Normal range of motion, no tenderness, supple, no stridor. [] Cardiovascular:Heart rate regular rhythm, no murmur [] Lungs & Thorax: Bilateral breath sounds clear to auscultation [] Abdomen: Bowel sounds normal, soft, no tenderness, no masses, no pulsatile masses. [] Skin: Warm, dry, no erythema, no rash. [] Back: No tenderness, no CVA tenderness. [] Extremities: No tenderness, no cyanosis, no clubbing, ROM intact, no edema. [] Neurologic: Alert and oriented X 3, normal motor function, normal sensory function, no focal deficits noted. [] Psychologic: Affect normal, judgement normal, mood normal. [] Current Patient Data Vital Signs Vital Signs Date Time Temp Pulse Resp B/P Pulse Ox O2 Delivery O2 Flow Rate FiO2 01/27/17 14:00 96 16 135/76 96 Room Air 01/27/17 11:35 97.9 97.9 Lab Values Laboratory Tests Test 01/27/17 13:15 White Blood Count 14.9x10^3/uL (4.0-11.0) H Red Blood Count 4.58x10^6/uL (3.50-5.40) Hemoglobin 13.3g/dL (12.0-15.5) Hematocrit 39.7% (36.0-47.0) Mean Corpuscular Volume 87fL (79-100) Mean Corpuscular Hemoglobin 29pg (25-35) Mean Corpuscular Hemoglobin Concent 34g/dL (31-37) Red Cell Distribution Width 13.9% (11.5-14.5) Platelet Count 329x10^3/uL (140-400) Neutrophils (%) (Auto) 58% (31-73) Lymphocytes (%) (Auto) 28% (24-48) Monocytes (%) (Auto) 5% (0-9) Eosinophils (%) (Auto) 9% (0-3) H Basophils (%) (Auto) 1% (0-3) Neutrophils # (Auto) 8.6x10^3uL (1.8-7.7) H Lymphocytes # (Auto) 4.2x10^3/uL (1.0-4.8) Monocytes # (Auto) 0.7x10^3/uL (0.0-1.1) Eosinophils # (Auto) 1.3x10^3/uL (0.0-0.7) H Basophils # (Auto) 0.2x10^3/uL (0.0-0.2) D-Dimer (Yklie) 0.39ug/mlFEU (0.00-0.50) Sodium Level 140mmol/L (136-145) Potassium Level 3.9mmol/L (3.5-5.1) Chloride Level 102mmol/L (98-107) Carbon Dioxide Level 28mmol/L (21-32) Anion Gap 10 (6-14) Blood Urea Nitrogen 16mg/dL (7-20) Creatinine 0.8mg/dL (0.6-1.0) Estimated GFR (Cockcroft-Gault) 75.6 Glucose Level 109mg/dL (70-99) H Calcium Level 9.6mg/dL (8.5-10.1) Troponin I Quantitative < 0.017ng/mL (0.000-0.055) Influenza Type A Antigen Negative (NEGATIVE) Influenza Type B Antigen Negative (NEGATIVE) Laboratory Tests 01/27/17 13:15 Laboratory Tests 01/27/17 13:15 EKG EKG EC:30: Sinus rhythm, heart rate 95 beats minute, upright axis, QTC of 448, QRS of 78, MS 158, no ST elevations or depressions, does not meet STEMI criteria. As interpreted by me. [] Radiology/Procedures Radiology/Procedures [] [facility] [address] [place] [address] IMAGING REPORT Signed PATIENT: JONATHAN ANN ACCOUNT: [id number] : 1965 LOCATION: ER AGE: 51 SEX: F EXAM STATUS: REG ER ORD. PHYSICIAN: TANIYA COLMENARES DO REASON: Cough PROCEDURE: CHEST PA & LATERAL Indication: Cough today, right-sided chest pain radiating posteriorly for 2 days. Technique: Two-view chest radiograph was obtained. Comparison is from December 16, 2016. Findings: The lungs are clear. The cardiopulmonary silhouette is within normal limits. There is no pleural effusion. The bony structures are intact. Leads overlie the patient. Impression: No acute thoracic findings. DICTATED and SIGNED BY: RONEL NEAL MD DATE: 01/27/171327 CC: MARKEL WILLIAMSON; TANIYA COLMENARES DO ~ Course & Med Decision Making Course & Med Decision Making Pertinent Labs and Imaging studies reviewed. (See chart for details) Patient well-appearing, reproduce will tenderness noted on the right and left sides of the chest, chest x-ray obtained, laboratory studies revealed no evidence acutely concerning findings. Patient states that she feels as though this pain is musculoskeletal, and I agree there is no evidence of any concerning pulmonary cardiac etiologies. Patient resting comfortably after receiving Valium, is still having pain occasionally, but is significantly improved. I did discuss findings with patient, she is agreeable plan to follow- up with her primary care provider, and return to the ED for concerning symptoms as discussed. Discharged home with prescription and for cyclobenzaprine and naproxen. Dragon Disclaimer Dragon Disclaimer This electronic medical record was generated, in whole or in part, using a voice recognition dictation system. Departure Impression: Primary Impression: Costochondral pain Disposition: HOME, SELF-CARE Condition: IMPROVED Scripts Naproxen 250 Mg [id number] Mg PO BID PRN PAIN #10 Prov:TANIYA COLMENARES DO 01/27/17 Cyclobenzaprine Hcl 10 Mg [id number] Mg PO TID PRN MUSCLE PAIN #14 TAB Prov:TANYIA COLMENARES DO 01/27/17 TANIYA COLMENARES DO Jan 27, 2017 13:08
[2017-01-27] MEDS ORDERED: DIAZEPAM 5 MG TABLET PO ONE (13:15)
[2017-01-27] MEDS ORDERED: NAPROXEN 250 MG TABLET PO ONE (13:15)
[2017-01-27 13:32] LABS: BASO # 0.2 x10^3/uL (0.0-0.2); BASO % 1 % (0-3); EOS % 9 % (0-3); HEMATOCRIT 39.7 % (36.0-47.0); HEMOGLOBIN 13.3 g/dL (12.0-15.5); LYMPH # 4.2 x10^3/uL (1.0-4.8); LYMPH % 28 % (24-48); MEAN CORPUSCULAR HEMOGLOBIN 29 pg (25-35); MEAN CORPUSCULAR HGB CONC 34 g/dL (31-37); MEAN CORPUSCULAR VOLUME 87 fL (79-100); MONO % 5 % (0-9); NEUT % 58 % (31-73); PLATELET COUNT 329 x10^3/uL (140-400); RED BLOOD COUNT 4.58 x10^6/uL (3.50-5.40); RED CELL DISTRIBUTION WIDTH 13.9 % (11.5-14.5); WHITE BLOOD COUNT 14.9 x10^3/uL (4.0-11.0)
--- NOTE | 2017-01-27 13:32 | RAD ---
Indication: Cough today, right-sided chest pain radiating posteriorly for 2 days. Technique: Two-view chest radiograph was obtained. Comparison is from December 16, 2016. Findings: The lungs are clear. The cardiopulmonary silhouette is within normal limits. There is no pleural effusion. The bony structures are intact. Leads overlie the patient. Impression: No acute thoracic findings.
[2017-01-27 13:38] LABS: CALCIUM 9.6 mg/dL (8.5-10.1); CREATININE 0.8 mg/dL (0.6-1.0); GFR 75.6; POTASSIUM 3.9 mmol/L (3.5-5.1)
[2017-01-27 13:59] LABS: OBC FLU VALID
[2017-01-27 14:00] VITALS: BP 135/76
[2017-01-27] MEDS ORDERED: NAPR250T2 PO (14:26)
[2017-01-27] MEDS ORDERED: CYCL10TA2 PO (14:26)
== END 2017-01-27 14:38 | disposition home or self-care (01) ==
LOC: ER 11:16
DX: M94.0 Chondrocostal junction syndrome [Tietze] (principal); E78.00 Pure hypercholesterolemia, unspecified; E11.9 Type 2 diabetes mellitus without complications; F41.9 Anxiety disorder, unspecified; I10 Essential (primary) hypertension; Z90.710 Acquired absence of both cervix and uterus; Z90.49 Acquired absence of other specified parts of digestive tract; Z95.5 Presence of coronary angioplasty implant and graft; Z88.5 Allergy status to narcotic agent
CPT/HCPCS: 36415; 71020; 80048; 84484; 85027; 85379; 87804; 93005; 99285-25

== ENCOUNTER 2017-07-27 13:01 | Emergency (ER) | payer OTHER ==
[~2017-07-27] VITALS: Ht 160 cm; Wt 94.8 kg
[~2017-07-27 13:01] MED LIST changes: +BENZ100C15 PO; -BENZ100C2 PO; -CLIN-44 PO; +CLIN150C14 PO; +CYCL10TA2 PO; -LEVO500T38 PO; +LEVO500T59 PO; +METF-620 PO; -METF10002 PO; +NAPR250T6 PO
[2017-07-27 13:43] LABS: BASO # 0.1 x10^3/uL (0.0-0.2); BASO % 1 % (0-3); EOS % 2 % (0-3); HEMATOCRIT 37.1 % (36.0-47.0); HEMOGLOBIN 13.1 g/dL (12.0-15.5); LYMPH # 2.6 x10^3/uL (1.0-4.8); LYMPH % 26 % (24-48); MEAN CORPUSCULAR HEMOGLOBIN 31 pg (25-35); MEAN CORPUSCULAR HGB CONC 35 g/dL (31-37); MEAN CORPUSCULAR VOLUME 88 fL (79-100); MONO % 7 % (0-9); NEUT % 65 % (31-73); PLATELET COUNT 279 x10^3/uL (140-400); RED CELL DISTRIBUTION WIDTH 14.5 % (11.5-14.5)
[2017-07-27 13:49] LABS: POTASSIUM ISTAT 3.7 mmol/L (3.5-5.0)
[2017-07-27 13:58] LABS: NEG OBC FOB NEG; POS OBC FOB POS
[2017-07-27 14:00] LABS: ALBUMIN 3.9 g/dL (3.4-5.0); DIRECT BILIRUBIN 0.1 mg/dL (0.0-0.2); TOTAL BILIRUBIN 0.3 mg/dL (0.2-1.0); TOTAL PROTEIN 7.2 g/dL (6.4-8.2)
[2017-07-27] MEDS ORDERED: LIDO:MAALOX:DONNATAL 1:1:1 15 ML SINGLE DOSE SWSW ONE ×2 (14:00→14:30)
[2017-07-27] MEDS ORDERED: CONTRAST GIVEN MC PRN (14:30)
[2017-07-27] MEDS ORDERED: KETOROLAC 30 MG/ML INJ. IV ONE (14:30)
--- NOTE | 2017-07-27 14:43 | PHYS DOC ---
Past Medical History Past Medical History: Anxiety, Bronchitis, Diabetes-Type II, GERD, High Cholesterol, Hypertension, UTI, Other Additional Past Medical Histor: CARDIAC BLOCKAGE LESS THAN 50%, COSTOCHONDRITIS. Past Surgical History: Cholecystectomy, Hysterectomy Additional Past Surgical Histo: right shoulder, carpel tunnel, CARDIA CATH NO STENTS Alcohol Use: Rarely Drug Use: None Adult General Chief Complaint Chief Complaint: epigastric pain HPI HPI Patient is a 52 year old female who presents with epigastric pain for about 1 week. Pt recently treated for UTI, then developed the pain, hasn't taken any pain controlling medication, denies nausea or vomiting. Pt's had previous cholecystectomy. Reports yesterday and recent days with black stools. Denies straining with stools. Denies known fevers. Review of Systems Review of Systems Constitutional: Denies fever or chills [] Eyes: Denies change in visual acuity, redness, or eye pain [] HENT: Denies nasal congestion or sore throat [] Respiratory: Denies cough or shortness of breath [] Cardiovascular: Denies chest pain GI: Denies diarrhea [] : Denies dysuria or hematuria [] Musculoskeletal: Denies back pain or joint pain [] Integument: Denies rash or skin lesions [] Neurologic: Denies headache, focal weakness or sensory changes [] Current Medications Current Medications Current Medications Medications (Trade) Dose Ordered Sig/Nano Start Time Stop Time Status Last Admin Dose Admin Info (Do NOT chart on this entry -- for MONITORING) 1 each PRN DAILY PRN 07/27/17 14:30 07/27/17 16:44 DC Iohexol (Omnipaque 300 Mg/ml) 75 ml 1X ONCE 07/27/17 15:00 07/27/17 15:01 DC 07/27/17 14:31 75 ML Ketorolac Tromethamine (Toradol) 30 mg 1X ONCE 07/27/17 14:30 07/27/17 14:31 DC 07/27/17 14:18 30 MG Multi-Ingredient Mouthwash/Gargle (Gi Cocktail Single Dose) 15 ml 1X ONCE 07/27/17 14:30 07/27/17 14:30 DC Allergies Allergies Allergies Coded Allergies Type Severity Reaction Last Updated Verified indomethacin Allergy Intermediate 07/27/17 Yes codeine Adverse Reaction Intermediate hallucinations 09/12/16 Yes Physical Exam Physical Exam Constitutional: Well developed, well nourished, no acute distress, non-toxic appearance, smiling HENT: Normocephalic, atraumatic, bilateral external ears normal, oropharynx moist, no oral exudates, nose normal. [] Eyes: PERRLA, EOMI, conjunctiva normal, no discharge. [] Neck: Normal range of motion, no tenderness, supple, no stridor. [] Cardiovascular:Heart rate regular with regular rhythm, no murmur [] Lungs & Thorax: Bilateral breath sounds clear to auscultation, no wheeze or crackles Abdomen: Bowel sounds normal, soft, ttp in epigastric region, negative murphys, neg mcburneys Skin: Warm, dry, no erythema, no rash. [] Back: No tenderness, no CVA tenderness. [] Extremities: No tenderness, no cyanosis, no clubbing, ROM intact, no edema. [] Neurologic: Alert and oriented X 3, normal motor function, normal sensory function, no focal deficits noted. [] Psychologic: Affect normal, judgement normal, mood normal. [] Current Patient Data Vital Signs Vital Signs Date Time Temp Pulse Resp B/P (MAP) Pulse Ox O2 Delivery O2 Flow Rate FiO2 07/27/17 16:27 86 120/64 (82) 94 07/27/17 13:40 Room Air 07/27/17 13:18 97.7 18 97.7 Lab Values Laboratory Tests Test 07/27/17 13:25 07/27/17 13:30 07/27/17 13:41 White Blood Count 10.0 x10^3/uL (4.0-11.0) Red Blood Count 4.20 x10^6/uL (3.50-5.40) Hemoglobin 13.1 g/dL (12.0-15.5) Hematocrit 37.1 % (36.0-47.0) Mean Corpuscular Volume 88 fL (79-100) Mean Corpuscular Hemoglobin 31 pg (25-35) Mean Corpuscular Hemoglobin Concent 35 g/dL (31-37) Red Cell Distribution Width 14.5 % (11.5-14.5) Platelet Count 279 x10^3/uL (140-400) Neutrophils (%) (Auto) 65 % (31-73) Lymphocytes (%) (Auto) 26 % (24-48) Monocytes (%) (Auto) 7 % (0-9) Eosinophils (%) (Auto) 2 % (0-3) Basophils (%) (Auto) 1 % (0-3) Neutrophils # (Auto) 6.5 x10^3uL (1.8-7.7) Lymphocytes # (Auto) 2.6 x10^3/uL (1.0-4.8) Monocytes # (Auto) 0.7 x10^3/uL (0.0-1.1) Eosinophils # (Auto) 0.2 x10^3/uL (0.0-0.7) Basophils # (Auto) 0.1 x10^3/uL (0.0-0.2) Total Bilirubin 0.3 mg/dL (0.2-1.0) Direct Bilirubin 0.1 mg/dL (0.0-0.2) Aspartate Amino Transferase (AST) 29 U/L (15-37) Alanine Aminotransferase (ALT) 41 U/L (14-59) Alkaline Phosphatase 81 U/L (46-116) Total Protein 7.2 g/dL (6.4-8.2) Albumin 3.9 g/dL (3.4-5.0) Lipase 214 U/L (73-393) Stool Occult Blood Negative (NEG) POC Hemoglobin 12.9 g/dL (12-15) POC Hematocrit 38 % (36-40) POC Sodium 135 mmol/L (135-145) POC Potassium 3.7 mmol/L (3.5-5.0) POC Chloride 100 mmol/L (98-110) POC Total CO2 23 mmol/L (23-32) Anion Gap 17 mmol/L (6-14) H POC Blood Urea Nitrogen 10 mg/dL (8-26) POC Creatinine 0.6 mg/dL (0.5-1.4) Glucose Level 126 mg/dL (70-99) H POC Ionized Calcium (Katheryn) 1.16 mmol/L (1.13-1.32) Laboratory Tests 07/27/17 13:25 Laboratory Tests 07/27/17 13:41 EKG EKG [] Radiology/Procedures Radiology/Procedures CT Abd/pelvis pending at time care transferred to Dr. Lao.[] Course & Med Decision Making Course & Med Decision Making Pertinent Labs and Imaging studies reviewed. (See chart for details) Pt given GI cocktail without relief of symptoms. IV toradol ordered, labs unremarkable. Pt would like CT of abdomen, this was ordered. Suspect it will be unremarkable and pt can be discharged with antacids and f/u with PCP. Care transferred to Dr. Lao at 1500 Dragon Disclaimer Dragon Disclaimer This electronic medical record was generated, in whole or in part, using a voice recognition dictation system. Departure Departure Impression: Primary Impression: Epigastric abdominal pain Referrals: MARKEL WILLIAMSON (PCP) Scripts Famotidine (PEPCID) 40 Mg Tablet 40 MG PO HS, #14 TAB 0 Refills Prov: BERNARD LAO MD 07/27/17 Assessment/Plan Assessment/Plan 52-year-old female presenting to the emergency department with reports of dark stool. Patient was seen by previous provider and signed out to me at 3 PM. Plan at sign out was to follow-up on CT abdomen pelvis. On reviewing the patient's chart, the patient is afebrile and mildly tachycardic with mild hypertension on triage vital signs. I did examine and discussed with the patient in person. Pertinent physical exam findings show a soft nontender abdomen without rebound tenderness or guarding. Patient is well-appearing and nontoxic. She is not pale. Patient's blood work is unremarkable. CT the abdomen pelvis is negative for acute pathology and or fecal occult blood testing was negative. Her pain was down to mild in severity when I examined her and talk to her. I offered her some Pepcid to go home with to follow-up with her doctor next 2-3 days. The patient was then discharged home in stable condition to follow up with their primary care physician over the next 2-3 days. They were to return if their symptoms worsened or if they were concerned for any reason. [id number] discharge instructions and return precautions were given. Patient's questions were answered to their satisfaction. Patient is comfortable plan. Problems: CLAUDETTE HANNON MD Jul 27, 2017 14:43 BERNARD LAO MD Jul 27, 2017 16:24
[2017-07-27] MEDS ORDERED: IOHEXOL 300 MG/ML 75 ML VIAL IV ONE (15:00)
--- NOTE | 2017-07-27 15:03 | RAD ---
Indication abdominal pain for one week. Axial images through the abdomen and pelvis were obtained. Approximately 75 cc of Omnipaque 300 was administered intravenously. Note is made of a previous examination 01/10/2011. The lung bases are clear. There are several healed right lower rib fractures. There is fatty infiltration of the liver. There is a hypervascular mass in the right lobe of the liver. This is likely incidental probably reflecting a flash hemangioma and is faintly visualized on the previous study. A definite significant finding in the liver is not seen. The spleen appears unremarkable. Clips are noted in the gallbladder fossa. No pancreatic abnormality is seen. There are no adrenal masses and the kidneys appear unremarkable. An acute or significant finding in the abdomen is not seen. In the pelvis occasional diverticula are seen associated with the large bowel. These are most numerous in the sigmoid colon. An acute finding in the pelvis is not seen. There is moderate distention of the urinary bladder. There are some degenerative changes at L5-S1. IMPRESSION: No acute finding seen in the abdomen or pelvis. Probable flash hemangioma in the liver. Mild diverticulosis seen associated with the large bowel. Mild distention of the urinary bladder
[2017-07-27] MEDS ORDERED: FAMO40TA57 PO (16:19)
[2017-07-27 16:27] VITALS: BP 120/64
== END 2017-07-27 16:33 | disposition home or self-care (01) ==
LOC: ER 13:01
DX: I10 Essential (primary) hypertension (principal); R10.13 Epigastric pain; E11.9 Type 2 diabetes mellitus without complications; E78.00 Pure hypercholesterolemia, unspecified; K21.9 Gastro-esophageal reflux disease without esophagitis; Z87.440 Personal history of urinary (tract) infections; Z90.49 Acquired absence of other specified parts of digestive tract; Z90.710 Acquired absence of both cervix and uterus; Z88.1 Allergy status to other antibiotic agents; Z88.5 Allergy status to narcotic agent
CPT/HCPCS: 36415; 74177; 80047; 80076; 82274; 83690; 85025; 96374; 99285; J1885; Q9967

== ENCOUNTER 2017-08-24 12:46 | Emergency (ER) | payer OTHER ==
[~2017-08-24 12:46] MED LIST changes: +FAMO40TA57 PO; -LOSA1TAB16 PO; +LOSA1TAB19 PO
[2017-08-24 13:24] VITALS: BP 149/97
--- NOTE | 2017-08-24 14:22 | RAD ---
Exam performed :Left foot and ankle 3 views Clinical indication: Patient twisted her ankle while stepping off the steps, history of previous fracture Date of service: 08/24/17 .Comparison:X-ray left ankle from 07/21/16 3 views left ankle findings: AP, oblique and lateral radiographs of the ankle reveal the osseous structures to be intact and well aligned. The joint spaces are well-preserved. Old healed fracture distal fibula. The articular margins are smooth. Evidence of acute fracture or dislocation is not identified. Mild soft tissue swelling is noted Impression: 1. Soft tissue swelling 2. No acute bony abnormality seen in the left ankle. End impression 3 views left foot findings: Normal alignment is preserved. There is no acute fracture or dislocation. There is mild soft tissue swelling. No foreign body seen. Impression: 1. Mild soft tissue swelling without underlying acute bony abnormality.
--- NOTE | 2017-08-24 14:27 | PHYS DOC ---
Past Medical History Past Medical History: Anxiety, Bronchitis, Diabetes-Type II, GERD, High Cholesterol, Hypertension, UTI, Other Additional Past Medical Histor: CARDIAC BLOCKAGE LESS THAN 50%, COSTOCHONDRITIS. Past Surgical History: Cholecystectomy, Hysterectomy Additional Past Surgical Histo: right shoulder, carpel tunnel, CARDIA CATH NO STENTS Alcohol Use: Rarely Drug Use: None Adult General Chief Complaint Chief Complaint: FOOT INJURY PAIN HPI HPI Patient is a 52 year old female with history of diabetes type 2, high cholesterol, hypertension, anxiety, who presents today with mild left lateral ankle pain and foot pain that began 3 days ago after she fell. Patient denies any loss of consciousness. Review of Systems Review of Systems Constitutional: Denies fever or chills [] Musculoskeletal: left lateral ankle pain and foot pain Integument: Denies rash or skin lesions [] Neurologic: Denies headache, focal weakness or sensory changes [] Current Medications Current Medications Current Medications Medications (Trade) Dose Ordered Sig/Nano Start Time Stop Time Status Last Admin Dose Admin Prednisone (Prednisone) 60 mg 1X ONCE 08/24/17 14:30 08/24/17 14:31 Cancel Allergies Allergies Allergies Coded Allergies Type Severity Reaction Last Updated Verified indomethacin Allergy Intermediate 07/27/17 Yes codeine Adverse Reaction Intermediate hallucinations 09/12/16 Yes Physical Exam Physical Exam Constitutional: Well developed, well nourished, no acute distress, non-toxic appearance. [] Skin: Warm, dry, no erythema, no rash. [] Back: No tenderness, no CVA tenderness. [] Extremities: Left ankle and left foot with no obvious deformity. Mild soft tissue swelling noted on the left lateral ankle and left foot. Tenderness on palpation of the left lateral ankle and left lateral foot diffusely. No navicular bone tenderness. Full range of motion to the left ankle and foot. +2 left pedal pulse. Cap refill less than 2 seconds the left toes. Sensation intact to the left lower extremity. Neurologic: Alert and oriented X 3, normal motor function, normal sensory function, no focal deficits noted. [] Psychologic: Affect normal, judgement normal, mood normal. [] Current Patient Data Vital Signs Vital Signs Date Time Temp Pulse Resp B/P (MAP) Pulse Ox O2 Delivery O2 Flow Rate FiO2 08/24/17 13:24 99.3 110 18 95 Room Air 99.3 EKG EKG [] Radiology/Procedures Radiology/Procedures []PROCEDURE: ANKLE LEFT 3V; FOOT LEFT 3V Exam performed :Left foot and ankle 3 views Clinical indication: Patient twisted her ankle while stepping off the steps, history of previous fracture Date of service: 08/24/17 .Comparison:X-ray left ankle from 07/21/16 3 views left ankle findings: AP, oblique and lateral radiographs of the ankle reveal the osseous structures to be intact and well aligned. The joint spaces are well-preserved. Old healed fracture distal fibula. The articular margins are smooth. Evidence of acute fracture or dislocation is not identified. Mild soft tissue swelling is noted Impression: 1. Soft tissue swelling 2. No acute bony abnormality seen in the left ankle. End impression 3 views left foot findings: Normal alignment is preserved. There is no acute fracture or dislocation. There is mild soft tissue swelling. No foreign body seen. Impression: 1. Mild soft tissue swelling without underlying acute bony abnormality. DICTATED and SIGNED BY: GAVIOTA MATAMOROS MD DATE: 08/24/17 1418 CC: MARKEL WILLIASMON; MACARENA GAITAN STROBOSCOPE OPERATOR; NON,STAFF ~ Course & Med Decision Making Course & Med Decision Making Pertinent Labs and Imaging studies reviewed. (See chart for details) Patient is in the ED with complaints of left lateral ankle pain and left lateral foot pain after falling 3 days ago. Left foot and left ankle x-rays interpreted by radiologist were negative for any acute findings. Patient probably sprained her left foot and ankle. Air cast was provided in the ED, neurovascular exam is intact. Ice elevation encouraged. Follow-up with Ortho PCP in 1-2 weeks if pain continues. Dragon Disclaimer Dragon Disclaimer This electronic medical record was generated, in whole or in part, using a voice recognition dictation system. Departure Departure Impression: Primary Impression: Sprain of ankle, left Additional Impression: Sprain of left foot Disposition: 01 HOME, SELF-CARE Condition: STABLE Referrals: MARKEL WILLIAMSON (PCP) MINNIE ODONNELL MD Follow-up in one week if pain continues Patient Instructions: Ankle Sprain, Foot Sprain-Brief Additional Instructions: You were seen for left ankle and left foot sprain. Ice and elevate the affected extremities. Wear the air cast provided as tolerated. Follow-up with your own doctor the provided orthopedic doctor in one week if pain continues. Scripts Ibuprofen (IBUPROFEN) 800 Mg Tablet 800 MG PO PRN Q6HRS Y for INFLAMMATION, #20 TAB Prov: MACARENA GAITAN STROBOSCOPE OPERATOR 08/24/17 Problem Qualifiers Primary Impression: Sprain of ankle, left Encounter type: initial encounter Involved ligament of ankle: unspecified ligament Qualified Codes: S93.402A - Sprain of unspecified ligament of left ankle, initial encounter Additional Impression: Sprain of left foot Encounter type: initial encounter Qualified Codes: S93.602A - Unspecified sprain of left foot, initial encounter MACARENA GAITAN STROBOSCOPE OPERATOR Aug 24, 2017 14:27
[2017-08-24] MEDS ORDERED: predniSONE 20 MG TABLET PO ONE (14:30)
[2017-08-24] MEDS ORDERED: IBUP-1060 PO (14:47)
== END 2017-08-24 15:00 | disposition home or self-care (01) ==
LOC: ER 12:46
DX: S93.402A Sprain of unspecified ligament of left ankle, initial encounter (principal); S93.602A Unspecified sprain of left foot, initial encounter; E11.9 Type 2 diabetes mellitus without complications; E78.00 Pure hypercholesterolemia, unspecified; I10 Essential (primary) hypertension; K21.9 Gastro-esophageal reflux disease without esophagitis; Z95.5 Presence of coronary angioplasty implant and graft; Z88.5 Allergy status to narcotic agent; Z88.8 Allergy status to other drugs, medicaments and biological substances; W19.XXXA Unspecified fall, initial encounter; Y93.89 Activity, other specified; Y92.89 Other specified places as the place of occurrence of the external cause; Y99.8 Other external cause status
CPT/HCPCS: 73610; 73630; 99284

== ENCOUNTER 2017-11-29 14:38 | Emergency (ER) | payer OTHER ==
[2017-11-29 15:18] LABS: ADD MAN DIFF? NO
[2017-11-29 15:19] LABS: BASO # 0.1 x10^3/uL (0.0-0.2); BASO % 1 % (0-3); EOS # 0.4 x10^3/uL (0.0-0.7); EOS % 3 % (0-3); HEMATOCRIT 40.4 % (36.0-47.0); HEMOGLOBIN 13.7 g/dL (12.0-15.5); LYMPH % 26 % (24-48); MEAN CORPUSCULAR HEMOGLOBIN 31 pg (25-35); MEAN CORPUSCULAR HGB CONC 34 g/dL (31-37); MEAN CORPUSCULAR VOLUME 91 fL (79-100); MONO # 0.6 x10^3/uL (0.0-1.1); MONO % 5 % (0-9); NEUT # 7.5 x10^3uL (1.8-7.7); NEUT % 64 % (31-73); PLATELET COUNT 304 x10^3/uL (140-400); RED BLOOD COUNT 4.42 x10^6/uL (3.50-5.40); RED CELL DISTRIBUTION WIDTH 13.8 % (11.5-14.5); WHITE BLOOD COUNT 11.6 x10^3/uL (4.0-11.0)
[2017-11-29 15:20] LABS: BILIRUBIN,URINE NEGATIVE (NEG); CLARITY,URINE CLEAR; COLOR,URINE YELLOW; GLUCOSE,URINE NEGATIVE (NEG); NITRITE,URINE NEGATIVE (NEG); PROTEIN,URINE NEGATIVE (NEG-TRACE); UROBILINOGEN,URINE 0.2 mg/dL (0.2 mg/dL)
[2017-11-29 15:31] LABS: ANION GAP 13 (6-14); BLOOD UREA NITROGEN 15 mg/dL (7-20); CALCIUM 9.4 mg/dL (8.5-10.1); CARBON DIOXIDE 27 mmol/L (21-32); CHLORIDE 97 mmol/L (98-107); CREATININE 0.7 mg/dL (0.6-1.0); GFR 87.9; GLUCOSE 189 mg/dL (70-99); POTASSIUM 3.9 mmol/L (3.5-5.1); SODIUM 137 mmol/L (136-145)
[2017-11-29 15:35] LABS: BACTERIA,URINE FEW /HPF (0-FEW); RBC,URINE 0 /HPF (0-2); SQUAMOUS EPITHELIAL CELL,UR FEW /LPF; WBC,URINE 0 /HPF (0-4)
[2017-11-29 15:37] LABS: ALBUMIN 4.3 g/dL (3.4-5.0); ALK PHOS 83 U/L (46-116); ALT (SGPT) 40 U/L (14-59); AST (SGOT) 35 U/L (15-37); DIRECT BILIRUBIN 0.1 mg/dL (0.0-0.2); TOTAL BILIRUBIN 0.3 mg/dL (0.2-1.0); TOTAL PROTEIN 8.1 g/dL (6.4-8.2)
[2017-11-29 15:40] LABS: PREG TEST PT QUAL NEGATIVE (NEG)
[2017-11-29 15:41] LABS: NEG OBC SER NEG; POS OBC SER POS
[2017-11-29 15:45] LABS: TROPONINI < 0.017 ng/mL (0.000-0.055)
[2017-11-29] MEDS: HYDROmorphone 2 MG/ML VIAL IV/SQ (15:54)
[2017-11-29] MEDS: ONDANSETRON PF 4 MG/2 ML VIAL. IV (15:54)
[2017-11-29] MEDS: IV NORMAL SALINE 1000ML BAG 1,000 ML IV ×2 (15:54→16:50)
== END 2017-11-29 17:47 | disposition home or self-care (01) ==
LOC: ER 14:38
DX: R10.9 Unspecified abdominal pain (principal); E11.65 Type 2 diabetes mellitus with hyperglycemia; E78.00 Pure hypercholesterolemia, unspecified; I10 Essential (primary) hypertension; F12.10 Cannabis abuse, uncomplicated; Z90.49 Acquired absence of other specified parts of digestive tract; Z90.710 Acquired absence of both cervix and uterus; Z88.5 Allergy status to narcotic agent; Z88.1 Allergy status to other antibiotic agents
CPT/HCPCS: 36415; 74176; 80048; 80076; 81001; 84484; 84703; 85025; 93005; 96361; 96374; 96375; 99285-25; J1170; J2405; J7030

== ENCOUNTER 2021-12-26 05:40 | Emergency (ER) | payer BC, OTHER ==
[~2021-12-26] VITALS: Ht 160 cm; Wt 84.1 kg
[2021-12-26 05:40] VITALS: BP 163/87
[~2021-12-26 05:40] MED LIST changes: +ALBU2.5V8 IH; +BENZ-8 PO; -BENZ100C15 PO; -CLIN150C14 PO; +CLIN150C16 PO; +CYCL10TA19 PO; -CYCL10TA2 PO; +GEMF600T20 PO; -GEMF600T3 PO; +HYDR-2761 PO; +HYDR-3164 PO; -HYDR-971 PO; -HYDR12.53 PO; +HYDR12.575 PO; +IBUP-1060 PO; +LOSA-73 PO; -LOSA50TA6 PO; -METF-620 PO; +METF10007 PO; +METF500T16 PO; -METF500T4 PO; +NAPR-683 PO; +NAPR-699 PO; -NAPR250T6 PO; -NAPR500T PO; +ONDA4TAB10 SL; -PANT40TA3 PO; -PANT40TA5 PO; +PANT40TA77 PO; -PROAIR HFA8.5 GM IH; +TRAZ-123 PO; -TRAZ100T12 PO
--- NOTE | 2021-12-26 05:51 | PHYS DOC ---
Past Medical History Past Medical History: Anxiety, Depression, Diabetes-Type II, High Cholesterol, Hypertension Additional Past Medical Histor: CARDIAC BLOCKAGE LESS THAN 50%, COSTOCHONDRITIS. (MI GONZALEZ MD) Past Surgical History: Cholecystectomy, , Hysterectomy Additional Past Surgical Histo: SHOULDER, WRIST, CARPAL TUNNEL (MI GONZALEZ MD) Smoking Status: Current Every Day Smoker Alcohol Use: Occasionally Drug Use: Marijuana (MI GONZALEZ MD) General Adult EDM: Chief Complaint: FOOT INJURY PAIN HPI: HPI: Patient is a 56 year old female who presents with left foot pain. States pain has been present since Thursday when she tripped on the floor and bumped the outside of her foot. Pain is all on the outside of the foot (points to 5th metatarsal). Denies any pain in the ankle. Has been walking on it gingerly, but pain is not improved. States that there was swelling, but has improved since onset. Has not taken any analgesics today. (MI GONZALEZ MD) Review of Systems: Review of Systems: Constitutional: Denies fever or chills. [] HENT: Denies nasal congestion or sore throat. [] Respiratory: Denies cough or shortness of breath. [] Cardiovascular: Denies chest pain Musculoskeletal: Reports left foot pain Integument: Denies rash. [] (MI GONZALEZ MD) Heart Score: C/O Chest Pain: N/A (MI GONZALEZ MD) Allergies: Allergies: Allergies Coded Allergies Type Severity Reaction Last Updated Verified indomethacin Allergy Intermediate 07/27/17 Yes codeine Adverse Reaction Intermediate hallucinations 09/12/16 Yes (MI GONZALEZ MD) Physical Exam: PE: Constitutional: Well developed, well nourished, no acute distress, non-toxic appearance. [] HENT: Normocephalic, atraumatic Neck: Normal range of motion, no tenderness, supple, no stridor. [] Cardiovascular:Heart rate regular rhythm, no murmur [] Lungs & Thorax: Normal work of breathing Extremities: Left foot with tenderness over the fifth metatarsal. No calcaneal, talar, or tarsal ttp. No tenderness over lisfranc joint or phalanges. Normal painless ROM of the ankle. No malleolar tenderness. 2+ DP and PT pulses. Distal sensation normal. Neurologic: Alert and oriented X 3, normal motor function, normal sensory function, no focal deficits noted. [] Psychologic: Affect normal, judgement normal, mood normal. [] (MI GONZALEZ MD) EKG: EKG: [] (MI GONZALEZ MD) Radiology/Procedures: Radiology/Procedures: [] (MI GONZALEZ MD) Radiology/Procedures: [facility] [address] [place] [address] IMAGING REPORT Signed PATIENT: JONATHAN MANLEY AACCOUNT: [id number] : 1965 LOCATION: ER AGE: 56 SEX: F EXAM STATUS: REG ER ORD. PHYSICIAN: MI GONZALEZ MD REASON: pain of fifth metatarsal PROCEDURE: FOOT LEFT 3V Three-view left foot HISTORY: Pain fifth metatarsal AP lateral oblique views The visualized osseous structures appear normal. IMPRESSION: No acute findings. Electronically signed by: Dago Goldman III, MD (12/26/2021 6:05 AM) [facility] DICTATED and SIGNED BY: DAGO GOLDMAN III, MD DATE: 12/26/21 [id number] (ELLI GARNICA DO) Course & Med Decision Making: Course & Med Decision Making Pertinent Labs and Imaging studies reviewed. (See chart for details) Patient 56-year-old female presents with pain over her left fifth metatarsal after bumping into the stairs on Thursday. X-rays of the foot are pending at time of signout to oncoming physician, Dr. Garnica. [id number] (MI GONZALEZ MD) Dragon Disclaimer: Dragon Disclaimer: This electronic medical record was generated, in whole or in part, using a voice recognition dictation system. (MI GONZALEZ MD) Departure Departure Impression: Primary Impression: Left foot pain Additional Impression: Contusion of left foot Disposition: HOME / SELF CARE / HOMELESS Condition: STABLE Referrals: MARKEL WILLIAMSON (PCP) Follow up with your doctor as needed Patient Instructions: Foot Contusion MI GONZALEZ MD Dec 26, 2021 05:51 ELLI GARNICA DO Dec 26, 2021 06:30
[2021-12-26] MEDS ORDERED: ACETAMINOPHEN 500 MG TABLET PO ONE (06:00)
--- NOTE | 2021-12-26 06:07 | RAD ---
Three-view left foot HISTORY: Pain fifth metatarsal AP lateral oblique views The visualized osseous structures appear normal. IMPRESSION: No acute findings. Electronically signed by: Leeroy Pardo III, MD (12/26/2021 6:05 AM) [facility]
== END 2021-12-26 06:40 | disposition home or self-care (01) ==
LOC: ER 05:40
DX: S90.32XA Contusion of left foot, initial encounter (principal); E11.9 Type 2 diabetes mellitus without complications; E78.00 Pure hypercholesterolemia, unspecified; I10 Essential (primary) hypertension; F17.200 Nicotine dependence, unspecified, uncomplicated; Z88.1 Allergy status to other antibiotic agents; Z88.5 Allergy status to narcotic agent; W01.0XXA Fall on same level from slipping, tripping and stumbling without subsequent striking against object, initial encounter; Y93.89 Activity, other specified; Y92.89 Other specified places as the place of occurrence of the external cause; Y99.8 Other external cause status
CPT/HCPCS: 73630; 99283